=== PATIENT | male | born 1960 | race Caucasian/White ===

== ENCOUNTER 2024-12-26 20:36 | Inpatient (IN) ==
--- NOTE | 2024-12-26 21:12 | Emergency Department Note ---
Impression & Plan Atrial flutter with rapid ventricular response, Bilateral pleural effusion, Hernia, ventral, Hypertension ED Provider Note NAME: JEAN-PAUL MCCRACKEN AGE: 64 SEX: M : 1960 ARRIVES VIA: Ambulance INFORMANT: Patient, ED PROVIDER(S): Fritz Odom DO CHIEF COMPLAINT: Hernia HPI: The patient is a 64-year-old male who presented to the emergency department for an evaluation of a hernia. The patient's had a hernia ever since he lifted his 4 avila out of the mud 6 months ago. The patient does not have a family doctor. The patient has not been seen by surgeon. He notices no nausea or vomiting. He came to emergency department this evening because he wants to have it evaluated and possibly have surgery. ROS: See above HPI for pertinent positives & negatives. A total of 10 systems reviewed and were otherwise negative. PAST MEDICAL HISTORY: See Below PAST SURGICAL HISTORY: See Below FAMILY HISTORY: See Below SOCIAL HISTORY: See Below HOME MEDICATIONS: See Below ALLERGIES: See Below VITALS: See Below PHYSICAL EXAMINATION: GENERAL: Patient is awake alert in no acute distress patient is resting comfortably and showing no signs of anxiety EYES: The conjunctivae are clear. The pupils are round and reactive. EARS, NOSE, MOUTH AND THROAT: The nose is without any evidence of any deformity. NECK: The neck is nontender and supple. RESPIRATORY: Normal respiratory effort is noted. Rales were noted at both bases. CARDIOVASCULAR: Tachycardic and irregular heart sounds with auscultation. No definite murmur was noted. GASTROINTESTINAL: The abdomen is soft. The abdomen is mildly distended. There is periumbilical tenderness noted but no obvious incarcerated hernia. MUSCULOSKELETAL/EXTREMITIES: There is no evidence of gross deformity full range of motion is noted in the hips and shoulders. SKIN: There is no obvious evidence of any rash. There are no petechiae, pallor or cyanosis noted. NEUROLOGIC: Patient is awake alert and oriented x3 MEDICAL DECISION MAKING: The patient is a 64-year-old male who presented to the emergency department initially complaining of upper abdominal pain. He states he has a hernia that began 6 months ago when he was pushing a 4 avila out of the mud. The patient was found to have tachycardia. On EKG he was found to have rapid atrial fibrillation with atrial flutter. The patient also had abnormal lung sounds. Chest x-ray revealed signs of pleural effusion bilaterally. I discussed patient's laboratory and radiographic studies with him. He was treated with IV fluids IV magnesium and IV Cardizem in the emergency department. He was reevaluated multiple times. His heart rate certainly improved. The patient does not see a family doctor at this time. I think he will require further cardiac workup to ensure no other specific underlying issues are noted. I discussed his condition with the on-call [facility] Hospitalist. They have agreed to evaluate the patient in the emergency department for further management and disposition. Triage Nursing notes reviewed. Prior medical records reviewed Vital Signs: reviewed and remarkable for hypertension and tachycardia. Differential diagnosis: Etiologies such as appendicitis, diverticulitis, obstruction, inflammatory bowel disease, renal colic, PUD, biliary pathology, pancreatitis, mesenteric ischemia, aortic pathology, infections, genitourinary, UTI, perforated viscus, as well as others were entertained. ER treatment provided: See below Diagnostics interpreted by me: ECG: EKG was obtained in the emergency department. My interpretation is atrial flutter at 120 bpm. No PVCs were noted. Widespread ST segment abnormalities are noted. QTc was 502 ms. Cardiac Monitoring: An order was placed for continuous cardiac monitoring. The monitor shows a rate of 98 bpm with atrial fibrillation. Laboratory studies: As stated above and show below. Imaging studies: See below. Radiographic imaging was reviewed by myself Consultation(s): I discussed this case with Dr. Lobo [facility] COURSE: Procedures: none Critical Care: I have personally spent greater than 40 minutes of critical care time in the direct management of this patient. This includes bedside care, interpretation of diagnostic studies, and testing, discussion with consultants, patient, and family members, and other required patient management activities. This 40 minutes is in excess of all separately billable procedures. Past Med/Surg History Problem List (Updated 12/27/24 @ 00:12 by Fritz Odom DO) Hernia, ventral (Acute) Bilateral pleural effusion (Acute) Atrial flutter with rapid ventricular response (Acute) Xerophthalmus Insomnia Seborrheic dermatitis of scalp Hypertension (Acute) Sinus congestion Headache Tension headache History of endoscopic sinus surgery x2 Meniere's disease Medical History Chronic otitis media Obesity Hepatitis C hx of, treated and no longer has BPH (benign prostatic hyperplasia) History of colon polyps Diverticular disease GERD (gastroesophageal reflux disease) Anxiety Hyperlipidemia Surgical History History of surgery on arm left arm History of liver biopsy fatty liver History of esophagogastroduodenoscopy (EGD) History of colonoscopy History of colon resection sigmoid d/t diverticulitis History of cholecystectomy History of appendectomy History of tonsillectomy History of myringotomy bilt Family History Other No family history of adverse response to anesthesia Social History Smoking Status: Current every day smoker Tobacco Type: Cigarettes Age Started Using Tobacco: 15; packs per day: 1; Cigarettes Per Day: was at 1 PPD - now down to 1 PPW; Second Hand Exposure: Yes (father smoked); Do You Dip or Chew Tobacco: No; Hx Alcohol Use: No Hx Substance Use: No Preferred Language: Yoruba Communication Ability: Effective 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: No Beliefs That Will Affect Care: None marital status: Current Living Situation: Alone current occupational status: retired Feels Safe at Home: Yes Diet: regular during the past year weight has: remained stable Physical Activity Frequency: Daily Physical Activity Frequency Comment: walking Seatbelt Use: always Sunscreen Use: Yes Assistive Devices: Glasses Allergies Allergies Allergy/AdvReac Type Severity Reaction Status Date / Time morphine Allergy Severe "it near Verified 03/20/24 14:49 killed me" alfuzosin Allergy Unknown Verified 03/20/24 14:49 clarithromycin [From Biaxin] AdvReac Mild keeps him Verified 03/20/24 14:49 awake Home Meds Previous Rx's Medication Instructions Recorded albuterol sulfate 90 mcg/actuation 1 inh inhalation QID #8.5 grams 03/20/24 aerosol inhaler lisinopril 20 mg tablet 20 mg PO DAILY #90 tabs 03/20/24 meloxicam 15 mg tablet 15 mg PO DAILY 14 days #14 tabs 03/20/24 clindamycin HCl 150 mg capsule 450 mg (3 x 150 mg) PO TID #63 caps 04/13/24 fluticasone propionate 50 1 spray intranasal Q12H #16 grams 04/13/24 mcg/actuation nasal spray,suspension ketoconazole 2 % shampoo 1 applic topical Q14D #120 mL 04/13/24 propylene glycol 0.6 % eye drops 1 drp ophthalmic (eye) BID PRN dry 04/13/24 (Systane Complete) eye(s) #20 mL quetiapine 100 mg tablet 100 mg PO QDAY #90 tabs 04/13/24 Results & Data (ED) Vital Signs Vital Signs - 24 hr 12/26/24 20:38 12/26/24 21:41 12/26/24 21:43 Temperature 36.7 C Temperature Source Temporal Artery Scan Pulse Rate 103 H 165 H Pulse Rate [Right Finger] 133 H Pulse Rate from SpO2 Sensor Pulse Rhythm Regular Pulse Rhythm [Right Finger] Regular Pulse Strength Normal Respiratory Rate 18 20 Respiratory Effort / Characteristics Non-Labored Spontaneous Respiratory Depth Normal Respiratory Pattern Regular Blood Pressure 176/97 H Blood Pressure [Right Arm] 174/144 H Blood Pressure Mean 123 Blood Pressure Mean [Right Arm] 154 Blood Pressure Position Sitting Pulse Oximetry 92 97 Oxygen Delivery Method Room Air Room Air Sepsis Recent Fever Within 48 Hours No Sepsis New/Unexplained Change in Mental Status No Sepsis Action Taken by Nursing No Action Required 12/26/24 21:49 12/26/24 22:52 12/26/24 23:01 Temperature Temperature Source Pulse Rate 140 H Pulse Rate [Right Finger] 105 H Pulse Rate from SpO2 Sensor Pulse Rhythm Regular Pulse Rhythm [Right Finger] Irregular Pulse Strength Respiratory Rate 20 20 Respiratory Effort / Characteristics Respiratory Depth Respiratory Pattern Blood Pressure 187/123 H Blood Pressure [Right Arm] 169/101 H Blood Pressure Mean 152 Blood Pressure Mean [Right Arm] 123 Blood Pressure Position Pulse Oximetry 95 90 93 Oxygen Delivery Method Room Air Room Air Room Air Sepsis Recent Fever Within 48 Hours Sepsis New/Unexplained Change in Mental Status Sepsis Action Taken by Nursing 12/26/24 23:09 12/26/24 23:12 Temperature Temperature Source Pulse Rate 121 H 97 H Pulse Rate [Right Finger] Pulse Rate from SpO2 Sensor 66 Pulse Rhythm Pulse Rhythm [Right Finger] Pulse Strength Respiratory Rate 34 H 26 H Respiratory Effort / Characteristics Respiratory Depth Respiratory Pattern Blood Pressure Blood Pressure [Right Arm] Blood Pressure Mean Blood Pressure Mean [Right Arm] Blood Pressure Position Pulse Oximetry Oxygen Delivery Method Sepsis Recent Fever Within 48 Hours Sepsis New/Unexplained Change in Mental Status Sepsis Action Taken by Usp Medications Current Medication List: was personally reviewed by me Laboratory Data Attestation: I reviewed the patient's lab results. 12/26/24 21:36 12/26/24 21:36 Lab Results 12/26/24 12/26/24 12/26/24 Range/Units 21:36 21:41 21:45 WBC 5.25 (4.8-10.8) K/ul RBC 5.17 (4.70-6.10) M/uL Hgb 15.1 (14.0-18.0) g/dl POC Hgb 15.6 (14.0-18.0) g/dl Hct 44.5 (42.0-52.0) % POC Hct 46 (42-52) % MCV 86.1 (80.0-100.0) fL MCH 29.2 (25.0-34.0) pg MCHC 33.9 (32.0-36.0) g/dL RDW Std Deviation 43.4 (36.4-46.3) fL RDW Coeff of Marc 14.0 (11.5-14.5) % Plt Count 215 (130-400) K/uL MPV 9.4 (9.4-12.4) fL Immature Gran % (Auto) 0.2 % Neut % (Auto) 70.6 % Lymph % (Auto) 18.5 % Bond % (Auto) 8.2 % Eos % (Auto) 1.9 % Baso % (Auto) 0.6 % Neut # (Auto) 3.71 (1.40-6.50) K/uL Lymph # (Auto) 0.97 L (1.20-3.40) K/uL Bond # (Auto) 0.43 (0.11-0.59) K/uL Eos # (Auto) 0.10 (0.00-0.50) K/uL Baso # (Auto) 0.03 (0.00-0.20) K/uL Immature Gran # (Auto) 0.01 (0.01-0.20) K/uL POC Sodium 141 (135-144) mmol/L Sodium 138 (136-145) mmol/L POC Potassium 3.6 (3.3-5.0) mmol/L Potassium 3.6 (3.5-5.1) mmol/L POC Chloride 105 (101-112) mmol/L Chloride 106 (98-107) mmol/L Carbon Dioxide 24 (21-32) mmol/L POC Total CO2 21 L (24-31) mmol/L Anion Gap 8 (3-11) POC Anion Gap 20.0 (16-25) mmol/L POC BUN 10 (7-18) mg/dl BUN 12 (6-23) mg/dl Creatinine 1.11 (0.6-1.4) mg/dl POC Creatinine 1.1 (0.6-1.3) mg/dl Est Cr Clr Drug Dosing 76.1 ml/min eGFR 73.24 BUN/Creatinine Ratio 10.8 (10-20) Glucose 112 H (70-99(Fasting)) mg/dl POC Glucose (other) 109 H (70-99) mg/dl Calcium 8.7 (8.6-10.3) mg/dl POC Ioniz Calcium Caryn 1.15 (1.12-1.32) mmol/l Magnesium 1.9 (1.7-2.4) mg/dl Total Bilirubin 1.1 H (0.2-1.0) mg/dl AST 21 (13-39) U/L ALT 21 (7-52) U/L Alkaline Phosphatase 43 (34-104) U/L Troponin I High Sens 80.9 H* (0-20) pg/ml Total Protein 7.1 (6.0-8.3) gm/dl Albumin 3.7 (3.4-5.0) gm/dl Globulin 3.4 (2.5-4.0) gm/dl Albumin/Globulin Ratio 1.1 (0.9-2) Lipase 7 L (11-82) U/L TSH 1.262 (0.300-4.500) uIu/ml Urine Color Yellow Urine Appearance Clear (Clear) Urine pH 7.0 (4.5-7.5) Ur Specific [place] 1.015 (1.000-1.030) Urine Protein 1+ H (Negative) Urine Glucose (UA) Negative (Negative) Urine Ketones Negative (Negative) Urine Blood 1+ H (Negative) Urine Nitrite Negative (Negative) Urine Bilirubin Negative (Negative) Urine Urobilinogen Negative (Negative) Ur Leukocyte Esterase Negative (Negative) Urine WBC (Auto) 0-5 (0-5) /hpf Urine RBC (Auto) 0-2 (0-2) /hpf U Hyaline Cast (Auto) 0-2 (0-2) /lpf U Epithel Cells (Auto) 0-2 (0-2) /hpf Urine Bacteria (Auto) None Seen (None Seen) Urine Comment Administered Medications Discontinued Medications Diltiazem HCl (Diltiazem Hcl 5 Mg/Ml 5 Ml Vial) 10 mg IV NOW STA Stop: 12/26/24 22:02 Last Admin: 12/26/24 22:43 Dose: 10 mg Documented By: EAGLE Co-signed By: FRANKIE Diltiazem HCl (Diltiazem Hcl 5 Mg/Ml 5 Ml Vial) 10 mg IV NOW STA Stop: 12/26/24 22:32 Last Admin: 12/26/24 23:03 Dose: 10 mg Documented By: EAGLE Co-signed By: BOB Sodium Chloride (Nss) 500 mls @ 999 mls/hr IV .Q31M STA Stop: 12/26/24 21:30 Last Infusion: 12/26/24 23:51 Dose: Infused Documented By: Admin: 12/26/24 22:51 Dose: 999 mls/hr Documented By: EAGLE Magnesium Sulfate/Dextrose (Magnesium Sulfate / D5w) 1 gm in 100 mls @ 100 mls/hr IV NOW STA Stop: 12/26/24 23:00 Last Infusion: 12/26/24 23:51 Dose: Infused Documented By: Admin: 12/26/24 22:43 Dose: 100 mls/hr Documented By: EAGLE Ioversol (Optiray 320 125ml) 118 ml IV ONCE ONE Stop: 12/26/24 22:25 Last Admin: 12/26/24 22:24 Dose: 118 ml Documented By: JEANNINE Ondansetron HCl (Ondansetron Inj 2 Mg/Ml 2 Ml Vial) 4 mg IV NOW STA Stop: 12/26/24 21:01 Last Admin: 12/26/24 22:43 Dose: 4 mg Documented By: EAGLE Imaging Data Attestation: I personally reviewed and interpreted this imaging study as follows: My Impression: 1 view chest x-ray was obtained in the emergency department. My interpretation is bilateral pleural effusions noted, cardiomegaly was noted, final report pending. Discharge Plan Visit Data Chief Complaint: Abdominal Pain Stated Complaint: ABDOMINAL PAIN ED Provider: Fritz Odom Discharge Problem: Atrial flutter with rapid ventricular response, Bilateral pleural effusion, Hernia, ventral, Hypertension Patient Disposition: Being Evaluated by Hospitalist Condition: Fair Forms Stand Alone Forms: My [facility] Prescriptions Prescriptions: No Action lisinopril 20 mg tablet 20 mg PO DAILY Qty: 90 3RF albuterol sulfate 90 mcg/actuation HFA aerosol inhaler 1 inh inhalation QID Qty: 8.5 2RF meloxicam 15 mg tablet 15 mg PO DAILY 14 Days Qty: 14 1RF quetiapine 100 mg tablet 100 mg PO QDAY Qty: 90 1RF Rx Instructions: Take at night ketoconazole 2 % shampoo 1 applic topical Q14D Qty: 120 0RF Rx Instructions: use twice a week for 3-4 weeks fluticasone propionate 50 mcg/actuation spray,suspension 1 spray intranasal Q12H Qty: 16 2RF Rx Instructions: administer into each nostril clindamycin HCl 150 mg capsule 450 mg PO TID Qty: 63 0RF Systane Complete 0.6 % drops 1 drp ophthalmic (eye) BID PRN (Reason: dry eye(s)) Qty: 20 1RF Referrals Referrals: Garcia Bustamante DO [Primary Care Provider] -
[2024-12-26 21:51] LABS: Hematocrit (blood only) 44.5 % (42.0-52.0); Hemoglobin 15.1 g/dl (14.0-18.0); Immature Granulocytes # (auto) 0.01 K/uL (0.01-0.20); Immature Granulocytes % (auto) 0.2 %; Mean Corpuscular Hemoglobin 29.2 pg (25.0-34.0); Mean Corpuscular Volume 86.1 fL (80.0-100.0); Platelet Count 215 K/uL (130-400); RDW Standard Deviation 43.4 fL (36.4-46.3); Red Blood Count 5.17 M/uL (4.70-6.10); White Blood Count 5.25 K/ul (4.8-10.8)
[2024-12-26 22:03] LABS: Appearance Urine Clear (Clear); Glucose Urine UA Negative (Negative)
[2024-12-26 22:08] LABS: Alanine Aminotransferase 21.0 U/L (7-52); Albumin Globulin Ratio 1.1 (0.9-2); Alkaline Phosphatase 43.0 U/L (34-104); Anion Gap 8.0 (3-11); Bilirubin,Total 1.1 mg/dl (0.2-1.0); Blood Urea Nitrogen 12.0 mg/dl (6-23); Calcium 8.7 mg/dl (8.6-10.3); Carbon Dioxide 24.0 mmol/L (21-32); Chloride 106.0 mmol/L (98-107); Creatinine Clr Calc Pharmacy 76.1 ml/min; Globulin 3.4 gm/dl (2.5-4.0); Glucose 112.0 mg/dl (70-99(Fasting)); Lipase 7.0 U/L (11-82); Potassium 3.6 mmol/L (3.5-5.1); Sodium 138.0 mmol/L (136-145); Total Protein 7.1 gm/dl (6.0-8.3)
[2024-12-26 22:09] LABS: Bacteria Urine Automated None Seen (None Seen); Cast Urine Automated 0-2 /lpf (0-2); Epithelial Cell Urine Auto 0-2 /hpf (0-2); RBC Urine Automated 0-2 /hpf (0-2); WBC Urine Automated 0-5 /hpf (0-5)
[2024-12-26 22:21] LABS: Magnesium 1.9 mg/dl (1.7-2.4)
[2024-12-26] MEDS: OPTIRAY 320 125ml IV ONE (22:24)
[2024-12-26 22:37] LABS: Thyroid Stimulating Hormone 1.262 uIu/ml (0.300-4.500)
[2024-12-26] MEDS: ONDANSETRON INJ 2 MG/ML 2 ML VIAL IV STA (22:43)
[2024-12-26] MEDS: MAGNESIUM SULFATE / D5W 1 GM/100 ML BAG IV STA (22:43)
[2024-12-26] MEDS: SODIUM CHLORIDE 0.9% 500 ML IV STA (22:51)
--- NOTE | 2024-12-27 00:33 | XRay Report ---
Exam(s): XR CXR 1 VIEW EXAM: XR Chest, 1 View CLINICAL HISTORY: Reason for exam: epigastric pain. TECHNIQUE: Frontal view of the chest. COMPARISON: Prior CT scan of the chest from the same day. FINDINGS: Lungs: Moderate to heavy peribronchial thickening of the central lower lobe bronchi with bilateral lower lobe infiltrates. Pleural space: Moderate sized right and small left pleural effusion. No pneumothorax. Heart: Mild cardiomegaly. Mediastinum: Unremarkable. Normal mediastinal contour. Bones/joints: Unremarkable. No acute fracture. IMPRESSION: Bilateral lower lobe infiltrates with moderate sized right and small left pleural effusions. Electronically signed by: Nataly Brock MD 12/27/24 00:32 AM
--- NOTE | 2024-12-27 00:46 | History & Physical Report ---
Date of Service December 27, 2024 Assessment & Plan (1) Bilateral pleural effusion: (2) Atrial flutter with rapid ventricular response: (3) Hypertension: (4) Hyperlipidemia: (5) GERD (gastroesophageal reflux disease): Plan 64-year-old male with history of hypertension, hyperlipidemia presenting with complaint of abdominal pain due to longstanding hernia. Found to be in new onset atrial fibrillation with rapid ventricular response. Concern for possible heart failure given presence of bilateral pleural effusions. Patient is not complaining of chest pain, palpitations, shortness of breath. Presently with adequate oxygenation on room air #Atrial fibrillation with rapid ventricular responsepatient is unaware of prior diagnosis of AF. rate is presently uncontrolled, has received 2 doses of IV diltiazem. Patient given IV Magnesium. TSH is within normal limits Will admit to PCU IV metoprolol 5 mg as needed. If persistently elevated heart rate will consider initiating diltiazem drip Will initiate apixaban anticoagulation (10 mg p.o. twice daily x 7 days followed by 5 mg p.o. twice daily)patient's [id number] score = 3 (age, hypertension, presumed history of CHF although workup for this is presently underway) #Pleural effusionsconcern for new onset heart failure in the setting of atrial fibrillation. Patient with no shortness of breath at present, adequate oxygenation on room air Check 2D echo Lasix 20 mg IV now and daily Monitor intake and output and daily weights Initiating metoprolol to tartrate 12.5 mg p.o. twice daily for blood pressure management as well as presumed CHF Initiating valsartan 80 mg p.o. daily for hypertension as well as presumed CHF Will need to readdress GDMT based on formal echo results. #Abdominal wall herniapatient complaining of this. At this point does not appear to be incarcerated. CT of the abdomen has been obtained and formal results are pending Will order abdominal binder to assist with symptoms #Hypertensionpatient with markedly elevated blood pressure. Was on lisinopril in the past but reports he is no longer taking any medications Will initiate metoprolol tartrate 12.5 mg p.o. twice daily Valsartan 80 mg p.o. every morning #Hyperlipidemiareported history. Patient presently not on any medications Check lipid panel with a.m. labs Will likely need to be started on a statin #GERDpatient with reported history of such. Presently with no complaints Consider H2 annelise if patient complains of symptoms #Chronic sinusitispatient is specifically asking for large quantities of clindamycin (500 tablets) to be prescribed to him urgently. Given that he has no evidence of active infection we will not provide antibiotics at this time Nasal spray 4 times daily as needed #Tobacco usepatient reports smoking 1.5 cigarettes/day. He is interested in a nicotine patch. I explained to him that he would most likely be getting more nicotine from the patch that he does from 1.5 cigarettes/day Nicotine 7 mg patch daily #Health maintenance Will order hemoglobin A1c and lipid panel History of Present Illness Chief Complaint: Shortness of breath Primary Care Provider: Garcia Bustamante DO Jalen Alvarado is a 64yo male with history of HTN, HLP, GERD, presenting with complaint of abdominal pain. Patient has a ventral hernia and reports ongoing pain in his anterior abdomen - sharp and stabbing with occasional radiation into the back. He reports that the pain is fairly constant, severe at times. He has normal appetite and oral intake. Reports normal bowel movements. No abdominal distention. In the ER, patient found to be in atrial fibrillation with rapid ventricular response. He has no prior history of atrial fibrillation but was told years ago by Dr. Jordan that he has an "extra heartbeat". Has never been on anticoagulation. Denies edema, orthopnea, weight gain Denies nausea, vomiting, diarrhea, constipation, urinary complaints He does have occasional cough productive for white phlegm with occasional pink tinge ER course: Thiamine 200 mg IV Diltiazem 10 mg IV x 2 Normal saline 500 mL IV Magnesium 1 g IV Zofran 4 mg IV Allergies Allergy/AdvReac Type Severity Reaction Status Date / Time morphine Allergy Severe "it near Verified 03/20/24 14:49 killed me" alfuzosin Allergy Unknown Unknown Verified 12/27/24 01:12 clarithromycin [From Biaxin] AdvReac Mild keeps him Verified 03/20/24 14:49 awake Home Medications Medication Instructions Recorded Confirmed Type No Known Home Medications 12/27/24 12/27/24 History Past Med/Surg History Problem List Hernia, ventral (Acute) Bilateral pleural effusion (Acute) Atrial flutter with rapid ventricular response (Acute) Xerophthalmus Insomnia Seborrheic dermatitis of scalp Hypertension (Acute) Sinus congestion Headache Tension headache History of endoscopic sinus surgery x2 Meniere's disease Medical History Chronic otitis media Obesity Hepatitis C hx of, treated and no longer has BPH (benign prostatic hyperplasia) History of colon polyps Diverticular disease GERD (gastroesophageal reflux disease) Anxiety Hyperlipidemia Surgical History History of surgery on arm left arm History of liver biopsy fatty liver History of esophagogastroduodenoscopy (EGD) History of colonoscopy History of colon resection sigmoid d/t diverticulitis History of cholecystectomy History of appendectomy History of tonsillectomy History of myringotomy bilt Family History Other No family history of adverse response to anesthesia Social History Smoking Status: Current every day smoker Tobacco Type: Cigarettes Age Started Using Tobacco: 15; packs per day: 1; Cigarettes Per Day: was at 1 PPD - now down to 1 PPW; Second Hand Exposure: Yes (father smoked); Do You Dip or Chew Tobacco: No; Hx Alcohol Use: No Hx Substance Use: No Preferred Language: Belarusian Communication Ability: Effective Swing Tender Required: No Beliefs That Will Affect Care: None marital status: Current Living Situation: Alone current occupational status: retired Feels Safe at Home: Yes Diet: regular during the past year weight has: remained stable Physical Activity Frequency: Daily Physical Activity Frequency Comment: walking Seatbelt Use: always Sunscreen Use: Yes Assistive Devices: Glasses Review of Systems Review of Systems: All systems reviewed & are unremarkable except as noted in HPI & below Physical Exam Physical Exam: General: patient resting comfortably, NAD, non-toxic in appearance, AA&O x 4 Skin: warm, dry, intact, no rashes or lesions HEENT: NC/AT, PERRL, EOMI, anicteric sclera, conjunctiva without injection, external ear normal to inspection and nontender, nares patent, moist mucus membranes, dentition intact, no oropharyngeal lesions, neck supple, trachea midline, no LAD, no thyromegaly, no JVD Heart: +S1/S2, irregularly irregular, tachycardic, no m/r/g Lungs: equal air entry bilaterally, no wheezes, diminished breath sounds in bases with some rales in mid lungs Abd: +BS, soft, NT/ND, abdominal hernia, soft, mildly tender Ext: warm, 2+ pulses in UE/LE bilaterally, no clubbing/cyanosis or edema Neuro: nonfocal, patient AA&O x 4, speech intact, no facial droop, moving all extremities on command with equal strength 5/5 Results & Data Results & Data Vital Signs (Past 12 Hours) Vital Signs Temp Pulse Pulse Resp BP BP Pulse Ox 12/26/24 23:12 97 H 26 H 12/26/24 23:09 121 H 34 H 12/26/24 23:01 187/123 H 93 12/26/24 22:52 105 H 20 169/101 H 90 12/26/24 21:49 140 H 20 95 12/26/24 21:43 165 H 12/26/24 21:41 133 H 20 174/144 H 97 12/26/24 20:38 36.7 C 103 H 18 176/97 H 92 O2 Del Method 12/26/24 23:12 12/26/24 23:09 12/26/24 23:01 Room Air 12/26/24 22:52 Room Air 12/26/24 21:49 Room Air 12/26/24 21:43 12/26/24 21:41 Room Air 12/26/24 20:38 Room Air Laboratory Results Laboratory Results WBC 5.25 K/ul (4.8-10.8) 12/26/24 21:36 RBC 5.17 M/uL (4.70-6.10) 12/26/24 21:36 Hgb 15.1 g/dl (14.0-18.0) 12/26/24 21:36 POC Hgb 15.6 g/dl (14.0-18.0) 12/26/24 21:41 Hct 44.5 % (42.0-52.0) 12/26/24 21:36 POC Hct 46 % (42-52) 12/26/24 21:41 MCV 86.1 fL (80.0-100.0) 12/26/24 21:36 MCH 29.2 pg (25.0-34.0) 12/26/24 21:36 MCHC 33.9 g/dL (32.0-36.0) 12/26/24 21:36 RDW Std Deviation 43.4 fL (36.4-46.3) 12/26/24 21:36 RDW Coeff of Marc 14.0 % (11.5-14.5) 12/26/24 21:36 Plt Count 215 K/uL (130-400) 12/26/24 21:36 MPV 9.4 fL (9.4-12.4) 12/26/24 21:36 Immature Gran % (Auto) 0.2 % 12/26/24 21:36 Neut % (Auto) 70.6 % 12/26/24 21:36 Lymph % (Auto) 18.5 % 12/26/24 21:36 Jenkins % (Auto) 8.2 % 12/26/24 21:36 Eos % (Auto) 1.9 % 12/26/24 21:36 Baso % (Auto) 0.6 % 12/26/24 21:36 Neut # (Auto) 3.71 K/uL (1.40-6.50) 12/26/24 21:36 Lymph # (Auto) 0.97 K/uL (1.20-3.40) L 12/26/24 21:36 Jenkins # (Auto) 0.43 K/uL (0.11-0.59) 12/26/24 21:36 Eos # (Auto) 0.10 K/uL (0.00-0.50) 12/26/24 21:36 Baso # (Auto) 0.03 K/uL (0.00-0.20) 12/26/24 21:36 Immature Gran # (Auto) 0.01 K/uL (0.01-0.20) 12/26/24:36 POC Sodium 141 mmol/L (135-144) 12/26/24 21:41 Sodium 138 mmol/L (136-145) 12/26/24 21:36 POC Potassium 3.6 mmol/L (3.3-5.0) 12/26/24 21:41 Potassium 3.6 mmol/L (3.5-5.1) 12/26/24 21:36 POC Chloride 105 mmol/L (101-112) 12/26/24 21:41 Chloride 106 mmol/L (98-107) 12/26/24 21:36 Carbon Dioxide 24 mmol/L (21-32) 12/26/24 21:36 POC Total CO2 21 mmol/L (24-31) L 12/26/24 21:41 Anion Gap 8 (3-11) 12/26/24 21:36 POC Anion Gap 20.0 mmol/L (16-25) 12/26/24 21:41 POC BUN 10 mg/dl (7-18) 12/26/24 21:41 BUN 12 mg/dl (6-23) 12/26/24 21:36 Creatinine 1.11 mg/dl (0.6-1.4) 12/26/24 21:36 POC Creatinine 1.1 mg/dl (0.6-1.3) 12/26/24 21:41 Est Cr Clr Drug Dosing 76.1 ml/min 12/26/24 21:36 eGFR 73.24 12/26/24 21:36 BUN/Creatinine Ratio 10.8 (10-20) 12/26/24 21:36 Glucose 112 mg/dl (70-99(Fasting)) H 12/26/24 21:36 POC Glucose (other) 109 mg/dl (70-99) H 12/26/24 21:41 Calcium 8.7 mg/dl (8.6-10.3) 12/26/24 21:36 POC Ioniz Calcium Caryn 1.15 mmol/l (1.12-1.32) 12/26/24 21:41 Magnesium 1.9 mg/dl (1.7-2.4) 12/26/24 21:36 Total Bilirubin 1.1 mg/dl (0.2-1.0) H 12/26/24 21:36 AST 21 U/L (13-39) 12/26/24 21:36 ALT 21 U/L (7-52) 12/26/24 21:36 Alkaline Phosphatase 43 U/L (34-104) 12/26/24 21:36 Troponin I High Sens Cancelled 12/26/24 23:14 Total Protein 7.1 gm/dl (6.0-8.3) 12/26/24 21:36 Albumin 3.7 gm/dl (3.4-5.0) 12/26/24 21:36 Globulin 3.4 gm/dl (2.5-4.0) 12/26/24 21:36 Albumin/Globulin Ratio 1.1 (0.9-2) 12/26/24 21:36 Lipase 7 U/L (11-82) L 12/26/24 21:36 TSH 1.262 uIu/ml (0.300-4.500) 12/26/24 21:36 Urine Color Yellow 12/26/24 21:45 Urine Appearance Clear (Clear) 12/26/24 21:45 Urine pH 7.0 (4.5-7.5) 12/26/24 21:45 Ur Specific [place] 1.015 (1.000-1.030) 12/26/24 21:45 Urine Protein 1+ (Negative) H 12/26/24 21:45 Urine Glucose (UA) Negative (Negative) 12/26/24 21:45 Urine Ketones Negative (Negative) 12/26/24 21:45 Urine Blood 1+ (Negative) H 12/26/24 21:45 Urine Nitrite Negative (Negative) 12/26/24 21:45 Urine Bilirubin Negative (Negative) 12/26/24 21:45 Urine Urobilinogen Negative (Negative) 12/26/24 21:45 Ur Leukocyte Esterase Negative (Negative) 12/26/24 21:45 Urine WBC (Auto) 0-5 /hpf (0-5) 12/26/24 21:45 Urine RBC (Auto) 0-2 /hpf (0-2) 12/26/24 21:45 U Hyaline Cast (Auto) 0-2 /lpf (0-2) 12/26/24 21:45 U Epithel Cells (Auto) 0-2 /hpf (0-2) 12/26/24 21:45 Urine Bacteria (Auto) None Seen (None Seen) 12/26/24 21:45 Urine Comment 12/26/24 21:45 Impressions Chest X-Ray 12/26/24 21:00 Exam(s): XR CXR 1 VIEW EXAM: XR Chest, 1 View CLINICAL HISTORY: Reason for exam: epigastric pain. TECHNIQUE: Frontal view of the chest. COMPARISON: Prior CT scan of the chest from the same day. FINDINGS: Lungs: Moderate to heavy peribronchial thickening of the central lower lobe bronchi with bilateral lower lobe infiltrates. Pleural space: Moderate sized right and small left pleural effusion. No pneumothorax. Heart: Mild cardiomegaly. Mediastinum: Unremarkable. Normal mediastinal contour. Bones/joints: Unremarkable. No acute fracture. IMPRESSION: Bilateral lower lobe infiltrates with moderate sized right and small left pleural effusions. Electronically signed by: Nataly Brock MD 12/27/24 00:32 AM Code Status & VTE Plan VTE Prophylaxis Plan VTE Prophylaxis will be ordered: Yes PG Care Time/CCT Total # of Minutes Spent Total Time Spent with Patient: Total time spent is greater than 50% in coordination of care (as documented) at patient's floor/unit and/or counseling patient: Coding Level of Care Code 74986 INT INP/OBS CARE 3/75MIN Diagnoses Bilateral pleural effusion J90 Atrial flutter with rapid ventricular response I48.92 Hypertension I10 Hyperlipidemia E78.5 GERD (gastroesophageal reflux disease) K21.9
[2024-12-27] MEDS: THIAMINE HCL 200 MG in SODIUM CHLORIDE 0.9% 50 ML IV STA (01:01)
[2024-12-27] MEDS: METOPROLOL TARTRATE 1 MG/ML VIAL IV STA (01:41)
--- NOTE | 2024-12-27 02:05 | CT Scan Report ---
Exam(s): CTA CHEST IV Amt: 118 cc opti 320 EXAM: CT Chest With Intravenous Contrast CLINICAL HISTORY: Reason for exam: PE. TECHNIQUE: Axial computed tomographic images of the chest with intravenous contrast. CTDI is 27.9 mGy and DLP is 1472.81 mGy-cm. Automated exposure control was utilized for the study. A dose lowering technique was utilized adhering to the principles of ALARA. COMPARISON: No relevant prior studies available. FINDINGS: Limitations: Exam is somewhat limited secondary to patient respiratory motion. Pulmonary arteries: Unremarkable. No large central pulmonary embolus. Aorta: No acute findings. No thoracic aortic aneurysm. Lungs: Unremarkable. No mass. No consolidation. Pleural space: Bilateral pleural effusions. No pneumothorax. Heart: Cardiomegaly. No significant pericardial effusion. No evidence of RV dysfunction. Bones/joints: No acute fracture. No dislocation. Soft tissues: Unremarkable. Lymph nodes: Unremarkable. No enlarged lymph nodes. IMPRESSION: Bilateral pleural effusions. Electronically signed by: Tyron Abraham MD 12/27/24 02:04 AM
--- NOTE | 2024-12-27 02:27 | CT Scan Report ---
Exam(s): CT ABDOMEN + PELVIS With Contrast IV Amt: 118 cc opti 320 EXAM: CT Abdomen and Pelvis With Intravenous Contrast CLINICAL HISTORY: Reason for exam: upper pain. TECHNIQUE: Axial computed tomography images of the abdomen and pelvis with intravenous contrast. CTDI is 27.9 mGy and DLP is 1472.81 mGy-cm. Automated exposure control was utilized for the study. A dose lowering technique was utilized adhering to the principles of ALARA. CONTRAST: Patient received 118 cc opti 320 of IV contrast COMPARISON: 05/01/2011 FINDINGS: Lung bases: Unremarkable. No mass. No consolidation. Pleural space: Bilateral pleural effusions. ABDOMEN: Liver: Hepatic steatosis. Gallbladder and bile ducts: Postop changes prior cholecystectomy. No ductal dilation. Pancreas: Unremarkable. No mass. No ductal dilation. Spleen: Splenomegaly. Adrenals: Unremarkable. No mass. Kidneys and ureters: Simple 5.8 cm right renal cysts. No follow-up of these simple cysts is necessary. Multiple left renal cysts measuring up to 1.8 cm. No hydronephrosis. Stomach and bowel: Postop changes of the sigmoid colon. Diverticulosis without evidence of diverticulitis. No obstruction. PELVIS: Appendix: No findings to suggest acute appendicitis. Bladder: Unremarkable. No mass. Reproductive: Unremarkable as visualized. ABDOMEN and PELVIS: Intraperitoneal space: Unremarkable. No free air. No significant fluid collection. Bones/joints: No acute fracture. No dislocation. Soft tissues: Unremarkable. Vasculature: Unremarkable. No abdominal aortic aneurysm. Lymph nodes: Unremarkable. No enlarged lymph nodes. IMPRESSION: Bilateral pleural effusions. Hepatic steatosis Splenomegaly Bilateral renal cysts Electronically signed by: Tyron Abraham MD 12/27/24 02:26 AM
[2024-12-27] MEDS ORDERED: SODIUM CHLORIDE 0.65% NA SOLN 45 ML (OCEAN) PRN (03:04)
[2024-12-27] MEDS ORDERED: ONDANSETRON INJ 2 MG/ML 2 ML VIAL IV PRN (03:04)
[2024-12-27] MEDS ORDERED: DOCUSATE SODIUM 100 MG CAP PO PRN (03:04)
[2024-12-27] MEDS: FUROSEMIDE INJ 20 MG/2 ML VIAL IV ONE (03:16)
[2024-12-27 03:46] LABS: Hematocrit (blood only) 43.3 % (42.0-52.0); Hemoglobin 14.6 g/dl (14.0-18.0); Mean Corpuscular Hemoglobin 29.2 pg (25.0-34.0); Mean Corpuscular Volume 86.6 fL (80.0-100.0); Platelet Count 214 K/uL (130-400); RDW Standard Deviation 43.8 fL (36.4-46.3); Red Blood Count 5.00 M/uL (4.70-6.10); White Blood Count 5.86 K/ul (4.8-10.8)
[2024-12-27] MEDS: KETOROLAC TROMETHAMINE 15 MG/ML VIAL IV ONE (03:48)
[2024-12-27 04:07] LABS: Cholesterol 99.0 mg/dl (0-200); HDL Cholesterol 27.0 mg/dl; Triglycerides 86.0 mg/dl (0-150)
[2024-12-27 04:08] LABS: Anion Gap 7.0 (3-11); Blood Urea Nitrogen 13.0 mg/dl (6-23); Calcium 8.5 mg/dl (8.6-10.3); Carbon Dioxide 24.0 mmol/L (21-32); Chloride 108.0 mmol/L (98-107); Creatinine Clr Calc Pharmacy 73.4 ml/min; Glucose 136.0 mg/dl (70-99(Fasting)); Potassium 3.8 mmol/L (3.5-5.1); Sodium 139.0 mmol/L (136-145)
[2024-12-27] MEDS: METOPROLOL TARTRATE 25 MG TAB PO SCH (08:46)
[2024-12-27] MEDS: VALSARTAN 80 MG TAB PO SCH (08:46)
[2024-12-27] MEDS: APIXABAN 5 MG TABLET PO SCH (08:47)
[2024-12-27] MEDS: NICOTINE 7 MG/24 HR TDSY TD SCH (08:47)
[2024-12-27] MEDS: REMOVE NICODERM PATCH SCH (08:48)
[2024-12-27] MEDS: FUROSEMIDE INJ 20 MG/2 ML VIAL IV SCH (08:50)
[2024-12-27 09:15] LABS: Hemoglobin A1C 5.7 % (4.5-5.6)
--- NOTE | 2024-12-27 10:54 | Cardiology Consultation ---
Date of Consultation December 27, 2024 Assessment & Plan (1) Heart failure with reduced ejection fraction (HFrEF): - Heart failure with --- EF: Patient appears euvolemic. NYHA symptoms. - start Coreg BID and Entresto daily. Hold off on MRA given the potential for hyperkalemia when combined with Entresto. - start Jardiance 10mg as well - Low-sodium diet. - Monitor I/O, daily morning weights and periodically renal function (2) Atrial flutter with rapid ventricular response: - As of an hour ago he appeared to be in NSR with frequent PVCs. Would certainly encourage the patient to where his monitor as frequent PVCs can lead to conversation of afib. - Continue on eliquis. Transition to Coreg from metoprolol - awaiting official echo read though his EF appears to be poor preliminary review (3) Elevated troponin: - likely in the setting of rapid aflutter - trended: 80.9, 75.6, 94.4 - one may consider obtaining an additional for further monitoring Plan Patient seen and examined, history reviewed with patient. He was in atrial fibrillation for short time on presentation and then converted to sinus rhythm where he has remained. On his echocardiogram he has severe left ventricular dysfunction, by my estimation about 30% ejection fraction. I did start carvedilol and Entresto this morning and he is on Jardiance and Eliquis was initiated. I discussed evaluation of his cardiomyopathy and although he is reluctant he is willing to undergo some testing. I discussed the possibility of a catheterization or stress test for his cardiomyopathy, when I talked to him this morning he did not want to have a stress test done today but is willing to do it tomorrow. I have therefore ordered a dobutamine stress echo for tomorrow. His cardiomyopathy could be ischemic but it is just is likely to be nonischemic given his ECG showing no evidence of prior myocardial infarction. His troponin elevation is worrisome, perhaps he has a myocarditis. History of Present Illness Reason for Consultation: Atrial fibrillation, cardiomyopathy Attending Physician: Rober Motley MD History of Present Illness Patient is a 64-year-old male with a past medical history of Mnire's disease and hypertension who presented to the ER yesterday for evaluation of a hernia that had been causing him upper abdominal pain. He was noted to be tachycardic with his EKG reflecting rapid atrial flutter with conduction abnormalities. Chest x-ray revealed bilateral pleural effusions. He was provided with IV fluids, IV mag and IV Cardizem in the ER. Per review, he remained in A-fib/a flutter for several hours. The patient broke out of this rhythm at some point overnight. Per report, the patient has been noncompliant with his monitor. His monitor this morning left to be in normal sinus rhythm with frequent PVCs. Heart rate is controlled. He was started on Eliquis along with lasix and metoprolol tartrate 12.5 mg p.o. twice daily by the hospitalist. Echocardiogram ordered. Patient was not overly cooperative with his exam as he wanted to sleep. He recalls someone telling him that his heart was not beating correctly. He denied any history of afib/flutter or if there was a family history of such. He denied any recent dizziness or blurred vision. Denied any recent chest pain/pressure or shortness of breath. He states his legs sometimes swell, "alittle," especially after being on them all day. He states he is able to complete his ADLs without difficulty, and does not exercise much. He states, "I eat what I want." Allergies Allergy/AdvReac Type Severity Reaction Status Date / Time morphine Allergy Severe "it near Verified 03/20/24 14:49 killed me" alfuzosin Allergy Unknown Unknown Verified 12/27/24 01:12 clarithromycin [From Biaxin] AdvReac Mild keeps him Verified 03/20/24 14:49 awake Home Medications Medication Instructions Recorded Confirmed Type No Known Home Medications 12/27/24 12/27/24 History Patient History Medical History Chronic otitis media Obesity Hepatitis C hx of, treated and no longer has BPH (benign prostatic hyperplasia) History of colon polyps Diverticular disease GERD (gastroesophageal reflux disease) Anxiety Hyperlipidemia Surgical History History of surgery on arm left arm History of liver biopsy fatty liver History of esophagogastroduodenoscopy (EGD) History of colonoscopy History of colon resection sigmoid d/t diverticulitis History of cholecystectomy History of appendectomy History of tonsillectomy History of myringotomy bilt Family History Other No family history of adverse response to anesthesia Social History Smoking Status: Current every day smoker Tobacco Type: Cigarettes Age Started Using Tobacco: 15; packs per day: 1; Cigarettes Per Day: was at 1 PPD - now down to 1 PPW; Second Hand Exposure: Yes (father smoked); Do You Dip or Chew Tobacco: No; Hx Alcohol Use: Yes Hx Substance Use: No Preferred Language: Arabic Communication Ability: Effective Post Office 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 Mood affect appear normal. All questions appropriately. Obese HEENT: Sclerae are anicteric. Pupils are equal and reactive to light and accommodation. Extraocular movements were intact. Neuro: Ox3 Lungs: Lungs are clear to auscultation bilaterally. There are no rales wheezes or rhonchi. She has normal respiratory effort without use of accessory muscles. There is normal pulmonary excursion. Cardiac: RRR. There are no murmurs on examination. The PMI was not markedly displaced on palpation. Extremities: Bilateral radial pulses are regular. There is +1 edema noted to bilateral lower extremities Skin: There are no rashes noted on examination today. Results & Data Vital Signs (Past 12 Hours) Vital Signs Temp Pulse Pulse Resp BP BP Pulse Ox 12/27/24 08:00 36.4 C L 61 18 137/94 91 12/27/24 05:23 82 12/27/24 05:07 36.5 C 76 22 137/89 96 12/27/24 04:56 73 22 141/104 H 96 12/27/24 03:08 103 H 18 145/102 H 97 12/27/24 02:11 100 H 22 145/104 H 97 12/27/24 02:08 100 H 145/104 H 12/27/24 01:41 123 H 167/121 H 12/27/24 01:06 153 H 12/27/24 01:00 132 H 24 168/121 H 95 12/27/24 00:30 115 H 22 12/27/24 00:00 94 H 13 181/97 H 12/26/24 23:12 97 H 26 H 12/26/24 23:09 121 H 34 H 12/26/24 23:01 187/123 H 93 12/26/24 22:52 105 H 20 169/101 H 90 O2 Del Method 12/27/24 08:00 Room Air 12/27/24 05:23 12/27/24 05:07 Room Air 12/27/24 04:56 Room Air 12/27/24 03:08 Room Air 12/27/24 02:11 Room Air 12/27/24 02:08 12/27/24 01:41 12/27/24 01:06 12/27/24 01:00 Room Air 12/27/24 00:30 12/27/24 00:00 12/26/24 23:12 12/26/24 23:09 12/26/24 23:01 Room Air 12/26/24 22:52 Room Air
--- NOTE | 2024-12-27 16:46 | Surgery Consultation ---
Date of Consultation December 27, 2024 Assessment & Plan (1) Diastasis of rectus abdominis: (2) Heart failure with reduced ejection fraction (HFrEF): (3) Atrial flutter with rapid ventricular response: 64 yo male presented to ED with concern of ventral hernia after lifting four- avila 6 months ago. Has had chronic pain and feeling "sick" because of this. CT scan images personally reviewed, there is no evidence of a ventral hernia . Examination is consistent with diastasis recti Dr. Mendoza discussed this with patient and that there is no surgical intervention for diastasis as it is a weakening of the rectus muscle. Continue medical management. Dr. Mendoza has seen and examined patient. Supervising Physician Co-Signing Physician Notes I have seen and examined the patient personally and agree with the above assessment and plan. In brief, he is very concerned about a ventral hernia, and is adamant that he has 1. I personally examined him and reviewed his CT scan. By exam he has a diastases recti but no evidence of ventral or umbilical hernia. The CT scan demonstrates no evidence of hernia, but does show a diastases. I had a long discussion with him attempting to explain the diastases and the difference between this and a hernia. I explained that there is no surgical intervention to fix the diastases, as this does not represent a true hernia. he was quite confrontational and continue to say that if I will not fix his hernia, he will find someone else to do so. I again attempted to explain that this was not a hernia but a diastases. Will discuss this with the primary care physician, but no surgical intervention is required or planned at this time. History of Present Illness Reason for Consultation: ventral hernia Requesting Physician: Rober Motley MD Attending Physician: Rober Motley MD History of Present Illness Mr Alvarado is a 64 yo male who presented to ED with complaint of ventral hernia and abdominal pain due to hernia since lifting his four-avila 6 months ago. States there is a bulge there which causes pain through abdomen, into back, and shoulder and causes him to feel "sick". He is requesting to have it fixed. History of multiple abdominal surgeries. Allergies Allergy/AdvReac Type Severity Reaction Status Date / Time morphine Allergy Severe "it near Verified 03/20/24 14:49 killed me" alfuzosin Allergy Unknown Unknown Verified 12/27/24 01:12 clarithromycin [From Biaxin] AdvReac Mild keeps him Verified 03/20/24 14:49 awake Home Medications Medication Instructions Recorded Confirmed Type No Known Home Medications 12/27/24 12/27/24 History Patient History Medical History Chronic otitis media Obesity Hepatitis C hx of, treated and no longer has BPH (benign prostatic hyperplasia) History of colon polyps Diverticular disease GERD (gastroesophageal reflux disease) Anxiety Hyperlipidemia Surgical History History of surgery on arm left arm History of liver biopsy fatty liver History of esophagogastroduodenoscopy (EGD) History of colonoscopy History of colon resection sigmoid d/t diverticulitis History of cholecystectomy History of appendectomy History of tonsillectomy History of myringotomy bilt Family History Other No family history of adverse response to anesthesia Social History Smoking Status: Current every day smoker Tobacco Type: Cigarettes Age Started Using Tobacco: 15; packs per day: 1; Cigarettes Per Day: was at 1 PPD - now down to 1 PPW; Second Hand Exposure: Yes (father smoked); Do You Dip or Chew Tobacco: No; Hx Alcohol Use: Yes Hx Substance Use: No Preferred Language: Norwegian Communication Ability: Effective Superior Court Justice Required: No Beliefs That Will Affect Care: None marital status: Current Living Situation: Alone current occupational status: retired Feels Safe at Home: Yes Diet: regular during the past year weight has: remained stable Physical Activity Frequency: Daily Physical Activity Frequency Comment: walking Seatbelt Use: always Sunscreen Use: Yes Assistive Devices: Glasses Review of Systems Review of Systems: All systems reviewed & are unremarkable except as noted in HPI & below Physical Exam Constitutional: WD/WN, vitals as above + obese and cooperative; no acute distress and not ill appearing Respiratory: normal respiratory effort; no respiratory distress Gastrointestinal (Abdomen): Inspection/Auscultation: abdomen normal to inspection; abdomen not distended Percussion/Palpation: abdomen soft; abdomen nontender, no guarding, abdomen not rigid, no hernia and abdomen not firm Diastasis of the mid upper abdomen when patient sitting up /increasing abdominal pressure Skin: no rashes, warm and dry Psychiatric: Orientation: alert and oriented x 3 Results & Data Vital Signs (Past 12 Hours) Vital Signs Temp Pulse Pulse Resp BP Pulse Ox O2 Del Method 12/27/24 15:10 36.6 C 79 18 132/91 93 Room Air 12/27/24 11:34 36.4 C L 53 L 20 111/80 93 Room Air 12/27/24 08:00 Room Air 12/27/24 08:00 36.4 C L 61 18 137/94 91 Room Air 12/27/24 05:23 82 12/27/24 05:07 36.5 C 76 22 137/89 96 Room Air 12/27/24 04:56 73 22 141/104 H 96 Room Air Laboratory Results 12/27/24 12/27/24 12/26/24 Range/Units 03:19 01:34 23:14 WBC 5.86 (4.8-10.8) K/ul RBC 5.00 (4.70-6.10) M/uL Hgb 14.6 (14.0-18.0) g/dl POC Hgb (14.0-18.0) g/dl Hct 43.3 (42.0-52.0) % POC Hct (42-52) % MCV 86.6 (80.0-100.0) fL MCH 29.2 (25.0-34.0) pg MCHC 33.7 (32.0-36.0) g/dL RDW Std Deviation 43.8 (36.4-46.3) fL RDW Coeff of Marc 14.1 (11.5-14.5) % Plt Count 214 (130-400) K/uL MPV 9.6 (9.4-12.4) fL Immature Gran % (Auto) % Neut % (Auto) % Lymph % (Auto) % [place] % (Auto) % Eos % (Auto) % Baso % (Auto) % Neut # (Auto) (1.40-6.50) K/uL Lymph # (Auto) (1.20-3.40) K/uL [place] # (Auto) (0.11-0.59) K/uL Eos # (Auto) (0.00-0.50) K/uL Baso # (Auto) (0.00-0.20) K/uL Immature Gran # (Auto) (0.01-0.20) K/uL POC Sodium (135-144) mmol/L Sodium 139 (136-145) mmol/L POC Potassium (3.3-5.0) mmol/L Potassium 3.8 (3.5-5.1) mmol/L POC Chloride (101-112) mmol/L Chloride 108 H (98-107) mmol/L Carbon Dioxide 24 (21-32) mmol/L POC Total CO2 (24-31) mmol/L Anion Gap 7 (3-11) POC Anion Gap (16-25) mmol/L POC BUN (7-18) mg/dl BUN 13 (6-23) mg/dl Creatinine 1.15 (0.6-1.4) mg/dl POC Creatinine (0.6-1.3) mg/dl Est Cr Clr Drug Dosing 73.4 ml/min eGFR 70.19 BUN/Creatinine Ratio 11.3 (10-20) Glucose 136 H (70-99(Fasting)) mg/dl POC Glucose (other) (70-99) mg/dl Estimat Average Glucose 117 mg/dl Hemoglobin A1c 5.7 H (4.5-5.6) % Calcium 8.5 L (8.6-10.3) mg/dl POC Ioniz Calcium Caryn (1.12-1.32) mmol/l Magnesium (1.7-2.4) mg/dl Total Bilirubin (0.2-1.0) mg/dl AST (13-39) U/L ALT (7-52) U/L Alkaline Phosphatase (34-104) U/L Troponin I High Sens 94.4 H* D 75.6 H* Cancelled (0-20) pg/ml Total Protein (6.0-8.3) gm/dl Albumin (3.4-5.0) gm/dl Globulin (2.5-4.0) gm/dl Albumin/Globulin Ratio (0.9-2) Triglycerides 86 (0-150) mg/dl Cholesterol 99 (0-200) mg/dl LDL Cholesterol, Calc 55 mg/dl VLDL Cholesterol, Calc 17 (0-30) mg/dl HDL Cholesterol 27 mg/dl Cholesterol/HDL Ratio 3.7 (0-5) Lipase (11-82) U/L TSH (0.300-4.500) uIu/ml Urine Color Urine Appearance (Clear) Urine pH (4.5-7.5) Ur Specific Grimsley (1.000-1.030) Urine Protein (Negative) Urine Glucose (UA) (Negative) Urine Ketones (Negative) Urine Blood (Negative) Urine Nitrite (Negative) Urine Bilirubin (Negative) Urine Urobilinogen (Negative) Ur Leukocyte Esterase (Negative) Urine WBC (Auto) (0-5) /hpf Urine RBC (Auto) (0-2) /hpf U Hyaline Cast (Auto) (0-2) /lpf U Epithel Cells (Auto) (0-2) /hpf Urine Bacteria (Auto) (None Seen) Urine Comment 12/26/24 12/26/24 12/26/24 Range/Units 21:45 21:41 21:36 WBC 5.25 (4.8-10.8) K/ul RBC 5.17 (4.70-6.10) M/uL Hgb 15.1 (14.0-18.0) g/dl POC Hgb 15.6 (14.0-18.0) g/dl Hct 44.5 (42.0-52.0) % POC Hct 46 (42-52) % MCV 86.1 (80.0-100.0) fL MCH 29.2 (25.0-34.0) pg MCHC 33.9 (32.0-36.0) g/dL RDW Std Deviation 43.4 (36.4-46.3) fL RDW Coeff of Marc 14.0 (11.5-14.5) % Plt Count 215 (130-400) K/uL MPV 9.4 (9.4-12.4) fL Immature Gran % (Auto) 0.2 % Neut % (Auto) 70.6 % Lymph % (Auto) 18.5 % Furn[place] % (Auto) 8.2 % Eos % (Auto) 1.9 % Baso % (Auto) 0.6 % Neut # (Auto) 3.71 (1.40-6.50) K/uL Lymph # (Auto) 0.97 L (1.20-3.40) K/uL [place] # (Auto) 0.43 (0.11-0.59) K/uL Eos # (Auto) 0.10 (0.00-0.50) K/uL Baso # (Auto) 0.03 (0.00-0.20) K/uL Immature Gran # (Auto) 0.01 (0.01-0.20) K/uL POC Sodium 141 (135-144) mmol/L Sodium 138 (136-145) mmol/L POC Potassium 3.6 (3.3-5.0) mmol/L Potassium 3.6 (3.5-5.1) mmol/L POC Chloride 105 (101-112) mmol/L Chloride 106 (98-107) mmol/L Carbon Dioxide 24 (21-32) mmol/L POC Total CO2 21 L (24-31) mmol/L Anion Gap 8 (3-11) POC Anion Gap 20.0 (16-25) mmol/L POC BUN 10 (7-18) mg/dl BUN 12 (6-23) mg/dl Creatinine 1.11 (0.6-1.4) mg/dl POC Creatinine 1.1 (0.6-1.3) mg/dl Est Cr Clr Drug Dosing 76.1 ml/min eGFR 73.24 BUN/Creatinine Ratio 10.8 (10-20) Glucose 112 H (70-99(Fasting)) mg/dl POC Glucose (other) 109 H (70-99) mg/dl Estimat Average Glucose mg/dl Hemoglobin A1c (4.5-5.6) % Calcium 8.7 (8.6-10.3) mg/dl POC Ioniz Calcium Caryn 1.15 (1.12-1.32) mmol/l Magnesium 1.9 (1.7-2.4) mg/dl Total Bilirubin 1.1 H (0.2-1.0) mg/dl AST 21 (13-39) U/L ALT 21 (7-52) U/L Alkaline Phosphatase 43 (34-104) U/L Troponin I High Sens 80.9 H* (0-20) pg/ml Total Protein 7.1 (6.0-8.3) gm/dl Albumin 3.7 (3.4-5.0) gm/dl Globulin 3.4 (2.5-4.0) gm/dl Albumin/Globulin Ratio 1.1 (0.9-2) Triglycerides (0-150) mg/dl Cholesterol (0-200) mg/dl LDL Cholesterol, Calc mg/dl VLDL Cholesterol, Calc (0-30) mg/dl HDL Cholesterol mg/dl Cholesterol/HDL Ratio (0-5) Lipase 7 L (11-82) U/L TSH 1.262 (0.300-4.500) uIu/ml Urine Color Yellow Urine Appearance Clear (Clear) Urine pH 7.0 (4.5-7.5) Ur Specific [place] 1.015 (1.000-1.030) Urine Protein 1+ H (Negative) Urine Glucose (UA) Negative (Negative) Urine Ketones Negative (Negative) Urine Blood 1+ H (Negative) Urine Nitrite Negative (Negative) Urine Bilirubin Negative (Negative) Urine Urobilinogen Negative (Negative) Ur Leukocyte Esterase Negative (Negative) Urine WBC (Auto) 0-5 (0-5) /hpf Urine RBC (Auto) 0-2 (0-2) /hpf U Hyaline Cast (Auto) 0-2 (0-2) /lpf U Epithel Cells (Auto) 0-2 (0-2) /hpf Urine Bacteria (Auto) None Seen (None Seen) Urine Comment Diagnostic Findings Exam(s): CT ABDOMEN + PELVIS With Contrast IV Amt: 118 cc opti 320 EXAM: CT Abdomen and Pelvis With Intravenous Contrast CLINICAL HISTORY: Reason for exam: upper pain. TECHNIQUE: Axial computed tomography images of the abdomen and pelvis with intravenous contrast. CTDI is 27.9 mGy and DLP is 1472.81 mGy-cm. Automated exposure control was utilized for the study. A dose lowering technique was utilized adhering to the principles of ALARA. CONTRAST: Patient received 118 cc opti 320 of IV contrast COMPARISON: 05/01/2011 FINDINGS: Lung bases: Unremarkable. No mass. No consolidation. Pleural space: Bilateral pleural effusions. ABDOMEN: Liver: Hepatic steatosis. Gallbladder and bile ducts: Postop changes prior cholecystectomy. No ductal dilation. Pancreas: Unremarkable. No mass. No ductal dilation. Spleen: Splenomegaly. Adrenals: Unremarkable. No mass. Kidneys and ureters: Simple 5.8 cm right renal cysts. No follow-up of these simple cysts is necessary. Multiple left renal cysts measuring up to 1.8 cm. No hydronephrosis. Stomach and bowel: Postop changes of the sigmoid colon. Diverticulosis without evidence of diverticulitis. No obstruction. PELVIS: Appendix: No findings to suggest acute appendicitis. Bladder: Unremarkable. No mass. Reproductive: Unremarkable as visualized. ABDOMEN and PELVIS: Intraperitoneal space: Unremarkable. No free air. No significant fluid collection. Bones/joints: No acute fracture. No dislocation. Soft tissues: Unremarkable. Vasculature: Unremarkable. No abdominal aortic aneurysm. Lymph nodes: Unremarkable. No enlarged lymph nodes. IMPRESSION: Bilateral pleural effusions. Hepatic steatosis Splenomegaly Bilateral renal cysts Personally reviewed ct scan images above. There is no evidence of a ventral/umbilical hernia on ct scan.
--- NOTE | 2024-12-27 16:50 | XCELERA ---
[id number]
[2024-12-27] MEDS: VALSARTAN/SACUBITRIL 26/24MG TAB PO SCH (21:31)
[2024-12-27] MEDS: ACETAMINOPHEN 325 MG TAB PO PRN (22:03)
[2024-12-28] MEDS: EMPAGLIFLOZIN 10 MG TAB PO SCH (09:21)
[2024-12-28] MEDS: ATROPINE SULFATE 0.1 MG/ML 10ML SYR IV ONE (10:56)
[2024-12-28] MEDS: DOBUTamine HCL 12.5 MG/ML 20 ML VIAL IV ONE (10:56)
[2024-12-28] MEDS: METOPROLOL TARTRATE 1 MG/ML VIAL IV ONE (10:57)
--- NOTE | 2024-12-28 14:50 | Hospitalist Progress Note ---
Date of Service December 28, 2024 Assessment & Plan (1) Bilateral pleural effusion: Plan: Acute HFpEF in setting of Atrial Flutter with RVR Cardiology consult appreciated Lasix IV Started coreg Echo showing EF 35% Stress test ordered-canceled 2nd to patient behavior (2) Atrial flutter with rapid ventricular response: Plan: -now in NSR -con't eliquis (3) Hypertension: Plan: -coreg (4) Diastasis of rectus abdominis: Plan: -surgical consult appreciated -no intervention necessary Plan 64-year-old male with history of hypertension, hyperlipidemia presenting with complaint of abdominal pain due to longstanding hernia. Found to be in new onset atrial fibrillation with rapid ventricular response. Concern for possible heart failure given presence of bilateral pleural effusions. Patient is not c omplaining of chest pain, palpitations, shortness of breath. Presently with adequate oxygenation on room air Pt not compliant with staff, refusing medications, district director and testing. Admission and Anticipated Discharge Date Admission Date: December 27, 2024 Subjective Pt refusing all medications, and not complying with nursing staff. Review of Systems Review of Systems: CONST: Negative for fever, body aches and chills. HENT: Negative for neck pain/stiffness, headache, congestion, sore throat, swelling. EYES: Negative for discharge/pain or vision changes. RESP: Negative for cough/hemoptysis and shortness of breath. CV: Negative chest pain, difficulty breathing, palpitations. ABD: Negative pain, nausea, vomiting. : Negative increase frequency, dysuria, blood in urine or stool. MUSC: Negative for muscle aches, edema. SKIN: Negative rash, lesions/sores. NEURO: Negative headache, dizziness, weakness. Physical Exam Physical Exam: GENERAL APPEARANCE NAD, activity normal for age, well developed/ well nourished, no cyanosis, pallor, or diaphoresis. EYES lids/conjunctiva normal. EARS/NOSE/THROAT Mucous membranes moist, nares normal, lips/teeth normal uvula midline without oral pharyngeal erythema, exudate or swelling TMs normal bilaterally. No lymphangitis/lymphedema. HEAD/NECK normocephalic atraumatic, no facial trauma, neck is supple. RESPIRATORY respiratory effort normal, speaks in full sentences, no tripod position, no accessory muscle use. Lungs clear to auscultation without rhonchi, wheezes, rales CARDIAC Regular rate and rhythm, no edema. ABDOMINAL Soft, ND/NT. No evidence of fluid wave. No pulsatile masses on exam, rebound tenderness, Pabon sign or pain over Mcburney's point. MUSCLES/EXTREMITIES No abnormal range of motion, no swelling. SKIN Warm, pink and dry. No rashes, dermatoses, petechiae or lesions. NEUROLOGICAL Speech is clear and appropriate. Normal level of consciousness. Gait and coordination are normal. 5/5 strength in all extremities. PSYCH Normal mood and affect. Judgement/competence is appropriate Results & Data Results & Data Vital Signs (Past 12 Hours) Vital Signs Temp Pulse Resp BP Pulse Ox O2 Del Method 12/28/24 06:59 36.4 C L 95 H 20 135/75 91 Room Air PG Care Time/CCT Total # of Minutes Spent Total Time Spent with Patient: Total time spent is greater than 50% in coordination of care (as documented) at patient's floor/unit and/or counseling patient: Coding Level of Care Code 95590 SUB INP/OBS CARE 2/35MIN Diagnoses Bilateral pleural effusion J90 Atrial flutter with rapid ventricular response I48.92 Hypertension I10 Diastasis of rectus abdominis M62.08
[2024-12-28 20:34] LABS: Hematocrit (blood only) 42.8 % (42.0-52.0); Hemoglobin 14.8 g/dl (14.0-18.0); Mean Corpuscular Hemoglobin 30.0 pg (25.0-34.0); Mean Corpuscular Volume 86.8 fL (80.0-100.0); Platelet Count 206 K/uL (130-400); RDW Standard Deviation 43.2 fL (36.4-46.3); Red Blood Count 4.93 M/uL (4.70-6.10); White Blood Count 6.02 K/ul (4.8-10.8)
[2024-12-28 20:48] LABS: Anion Gap 4.0 (3-11); Blood Urea Nitrogen 19.0 mg/dl (6-23); Calcium 8.2 mg/dl (8.6-10.3); Carbon Dioxide 26.0 mmol/L (21-32); Chloride 107.0 mmol/L (98-107); Creatinine Clr Calc Pharmacy 61.5 ml/min; Glucose 111.0 mg/dl (70-99(Fasting)); Potassium 4.1 mmol/L (3.5-5.1); Sodium 137.0 mmol/L (136-145)
--- NOTE | 2024-12-29 11:34 | Hospitalist Progress Note ---
Date of Service December 29, 2024 Assessment & Plan (1) Bilateral pleural effusion: Plan: Acute HFpEF in setting of Atrial Flutter with RVR Cardiology consult appreciated Lasix IV 20mg BID Started coreg Echo showing EF 35% Stress test results pending (2) Atrial flutter with rapid ventricular response: Plan: -now in NSR -con't eliquis (3) Hypertension: Plan: -coreg (4) Diastasis of rectus abdominis: Plan: -surgical consult appreciated -no intervention necessary Plan 64-year-old male with history of hypertension, hyperlipidemia presenting with complaint of abdominal pain due to longstanding hernia. Found to be in new onset atrial fibrillation with rapid ventricular response. Concern for possible heart failure given presence of bilateral pleural effusions. Patient is not complaining of chest pain, palpitations, shortness of breath. Presently with adequate oxygenation on room air Pt not compliant with staff, refusing medications, manager monitoring. Awaiting stress test results prior to d/c home Admission and Anticipated Discharge Date Admission Date: December 27, 2024 Subjective No events overnight. Pt remaining noncompliant with nursing staff. Still complaining of difficulty breathing. Review of Systems Review of Systems: CONST: Negative for fever, body aches and chills. HENT: Negative for neck pain/stiffness, headache, congestion, sore throat, swelling. EYES: Negative for discharge/pain or vision changes. RESP: Negative for cough/hemoptysis and shortness of breath. CV: Negative chest pain, difficulty breathing, palpitations. ABD: Negative pain, nausea, vomiting. : Negative increase frequency, dysuria, blood in urine or stool. MUSC: Negative for muscle aches, edema. SKIN: Negative rash, lesions/sores. NEURO: Negative headache, dizziness, weakness. Physical Exam Physical Exam: GENERAL APPEARANCE NAD, activity normal for age, well developed/ well nourished, no cyanosis, pallor, or diaphoresis. EYES lids/conjunctiva normal. EARS/NOSE/THROAT Mucous membranes moist, nares normal, lips/teeth normal uvula midline without oral pharyngeal erythema, exudate or swelling TMs normal bilaterally. No lymphangitis/lymphedema. HEAD/NECK normocephalic atraumatic, no facial trauma, neck is supple. RESPIRATORY respiratory effort normal, speaks in full sentences, no tripod position, no accessory muscle use. Lungs clear to auscultation without rhonchi, wheezes, rales CARDIAC Regular rate and rhythm, no edema. ABDOMINAL Soft, ND/NT. No evidence of fluid wave. No pulsatile masses on exam, rebound tenderness, Pabon sign or pain over Mcburney's point. MUSCLES/EXTREMITIES No abnormal range of motion, no swelling. SKIN Warm, pink and dry. No rashes, dermatoses, petechiae or lesions. NEUROLOGICAL Speech is clear and appropriate. Normal level of consciousness. Gait and coordination are normal. 5/5 strength in all extremities. PSYCH Normal mood and affect. Judgement/competence is appropriate Results & Data Results & Data Vital Signs (Past 12 Hours) Vital Signs Temp Pulse Resp BP Pulse Ox O2 Del Method 12/29/24 10:09 Room Air 12/29/24 07:36 36.6 C 72 16 150/85 H 95 Room Air PG Care Time/CCT Total # of Minutes Spent Total Time Spent with Patient: Total time spent is greater than 50% in coordination of care (as documented) at patient's floor/unit and/or counseling patient: Coding Level of Care Code 90265 SUB INP/OBS CARE 2/35MIN Diagnoses Bilateral pleural effusion J90 Atrial flutter with rapid ventricular response I48.92 Hypertension I10 Diastasis of rectus abdominis M62.08
--- NOTE | 2024-12-29 18:13 | Cardiology Progress Note ---
Date of Service December 29, 2024 Assessment & Plan (1) Heart failure with reduced ejection fraction (HFrEF): (2) Atrial flutter with rapid ventricular response: (3) Elevated troponin: Plan 1. CHF: This appears to be due to his left ventricular dysfunction, we will need to gradually titrate his heart failure medications. So far he seems to be doing well on them. 2. Atrial flutter: He appears to have a paroxysmal arrhythmia but still should be treated with anticoagulation as he is. With titration of his beta-annelise his heart rate should be fairly well-controlled if he goes back into his atrial arrhythmia. 3. Troponin elevation: His troponin has decreased although remains elevated, this may be indicative of coronary disease although I do not believe it is indicative of acute myocardial infarction. We should plan on catheterization if the patient is willing. Admission and Anticipated Discharge Date Admission Date: December 27, 2024 Results & Data Vital Signs (Past 12 Hours) Vital Signs Temp Pulse Resp BP Pulse Ox O2 Del Method 12/29/24 17:10 36.6 C 73 16 124/75 93 Room Air 12/29/24 10:09 Room Air 12/29/24 07:36 36.6 C 72 16 150/85 H 95 Room Air Laboratory Results Cardiac Enzymes 12/28/24 12/29/24 Range/Units 20:15 01:07 Troponin I High Sens 41.7 H D 43.8 H (0-20) pg/ml CBC 12/28/24 Range/Units 20:15 WBC 6.02 (4.8-10.8) K/ul RBC 4.93 (4.70-6.10) M/uL Hgb 14.8 (14.0-18.0) g/dl Hct 42.8 (42.0-52.0) % Plt Count 206 (130-400) K/uL Comprehensive Metabolic Panel 12/28/24 Range/Units 20:15 Sodium 137 (136-145) mmol/L Potassium 4.1 (3.5-5.1) mmol/L Chloride 107 (98-107) mmol/L Carbon Dioxide 26 (21-32) mmol/L BUN 19 (6-23) mg/dl Creatinine 1.36 (0.6-1.4) mg/dl Glucose 111 H (70-99(Fasting)) mg/dl Calcium 8.2 L (8.6-10.3) mg/dl Intake and Output 12/29/24 12/29/24 12/29/24 06:59 14:59 22:59 Other: Weight 102.4 kg Weight Measurement Method [facility] Diagnostic Findings His stress test was read although for some reason it does not appear in his chart as yet. He had no real change in his left ventricular function with dobutamine so that it was a nondiagnostic study, he will probably need coronary angiography. PG Care Time/CCT Total # of Minutes Spent Total Time Spent with Patient: Total time spent is greater than 50% in coordination of care (as documented) at patient's floor/unit and/or counseling patient: Coding Level of Care Code 26126 SUB INP/OBS CARE 2/35MIN Diagnoses Heart failure with reduced ejection fraction (HFrEF) I50.20 Atrial flutter with rapid ventricular response I48.92 Elevated troponin R79.89
--- NOTE | 2024-12-30 09:07 | Electrocardiogram Report ---
Test Reason : Blood Pressure : */* mmHG Vent. Rate : 83 BPM Atrial Rate : 83 BPM P-R Int : 124 ms QRS Dur : 90 ms QT Int : 432 ms P-R-T Axes : 61 62 68 degrees QTcB Int : 507 ms Sinus rhythm with Premature atrial complexes with Aberrant conduction Nonspecific T wave abnormality Abnormal ECG When compared with ECG of 26-Dec-2024 21:56, (unconfirmed) Sinus rhythm has replaced Atrial flutter Vent. rate has decreased by 45 bpm Nonspecific T wave abnormality now evident in Anterior leads Confirmed by Inder Lal ([id number]) on 12/30/2024 9:07:13 AM Referred By: REFERRED SELF Confirmed By: Inder Lal
--- NOTE | 2024-12-30 09:23 | Electrocardiogram Report ---
Test Reason : Blood Pressure : */* mmHG Vent. Rate : 128 BPM Atrial Rate : 315 BPM P-R Int : * ms QRS Dur : 94 ms QT Int : 344 ms P-R-T Axes : * 48 0 degrees QTcB Int : 502 ms Atrial flutter with variable A-V block Minimal voltage criteria for LVH, may be normal variant ( [place] product ) Abnormal ECG When compared with ECG of 26-May-2012 12:13, Atrial flutter is now Present Confirmed by Inder Lal ([id number]) on 12/30/2024 9:23:25 AM Referred By: REFERRED SELF Confirmed By: Inder Lal
--- NOTE | 2024-12-30 09:36 | Hospitalist Progress Note ---
Date of Service December 30, 2024 Assessment & Plan (1) Bilateral pleural effusion: Plan: Acute HFpEF in setting of Atrial Flutter with RVR Cardiology consult appreciated Lasix IV 20mg BID Started coreg Echo showing EF 35% Cardiology recommending cardiac cath Patient agreeing (2) Atrial flutter with rapid ventricular response: Plan: -now in NSR -con't eliquis (3) Hypertension: Plan: -coreg (4) Diastasis of rectus abdominis: Plan: -surgical consult appreciated -no intervention necessary Plan 64-year-old male with history of hypertension, hyperlipidemia presenting with complaint of abdominal pain due to longstanding hernia. Found to be in new onset atrial fibrillation with rapid ventricular response. Concern for possible heart failure given presence of bilateral pleural effusions. Patient is not complaining of chest pain, palpitations, shortness of breath. Presently with adequate oxygenation on room air Pt agreeing to cardiac cath. Admission and Anticipated Discharge Date Admission Date: December 27, 2024 Subjective No events overnight. Pt resting in bed. Review of Systems Review of Systems: CONST: Negative for fever, body aches and chills. HENT: Negative for neck pain/stiffness, headache, congestion, sore throat, swelling. EYES: Negative for discharge/pain or vision changes. RESP: Negative for cough/hemoptysis and shortness of breath. CV: Negative chest pain, difficulty breathing, palpitations. ABD: Negative pain, nausea, vomiting. : Negative increase frequency, dysuria, blood in urine or stool. MUSC: Negative for muscle aches, edema. SKIN: Negative rash, lesions/sores. NEURO: Negative headache, dizziness, weakness. Physical Exam Physical Exam: GENERAL APPEARANCE NAD, activity normal for age, well developed/ well nourished, no cyanosis, pallor, or diaphoresis. EYES lids/conjunctiva normal. EARS/NOSE/THROAT Mucous membranes moist, nares normal, lips/teeth normal uvula midline without oral pharyngeal erythema, exudate or swelling TMs normal bilaterally. No lymphangitis/lymphedema. HEAD/NECK normocephalic atraumatic, no facial trauma, neck is supple. RESPIRATORY respiratory effort normal, speaks in full sentences, no tripod position, no accessory muscle use. Lungs clear to auscultation without rhonchi, wheezes, rales CARDIAC Regular rate and rhythm, no edema. ABDOMINAL Soft, ND/NT. No evidence of fluid wave. No pulsatile masses on exam, rebound tenderness, Pabon sign or pain over Mcburney's point. MUSCLES/EXTREMITIES No abnormal range of motion, no swelling. SKIN Warm, pink and dry. No rashes, dermatoses, petechiae or lesions. NEUROLOGICAL Speech is clear and appropriate. Normal level of consciousness. Gait and coordination are normal. 5/5 strength in all extremities. PSYCH Normal mood and affect. Judgement/competence is appropriate Results & Data Results & Data Vital Signs (Past 12 Hours) Vital Signs Pulse Resp BP Pulse Ox O2 Del Method 12/30/24 07:57 78 16 146/94 H 93 Room Air PG Care Time/CCT Total # of Minutes Spent Total Time Spent with Patient: Total time spent is greater than 50% in coordination of care (as documented) at patient's floor/unit and/or counseling patient: Coding Level of Care Code 44756 SUB INP/OBS CARE 2/35MIN Diagnoses Bilateral pleural effusion J90 Atrial flutter with rapid ventricular response I48.92 Hypertension I10 Diastasis of rectus abdominis M62.08
--- NOTE | 2024-12-31 09:00 | Hospitalist Progress Note ---
Date of Service December 31, 2024 Assessment & Plan (1) Bilateral pleural effusion: Plan: Acute HFpEF in setting of Atrial Flutter with RVR Cardiology consult appreciated Lasix IV 20mg BID Started coreg Echo showing EF 35% Cardiology recommending cardiac cath Patient agreeing Awaiting inpatient scheduled date, possibly 01/01 (2) Atrial flutter with rapid ventricular response: Plan: -now in NSR -con't eliquis (3) Hypertension: Plan: -coreg (4) Diastasis of rectus abdominis: Plan: -surgical consult appreciated -no intervention necessary Plan 64-year-old male with history of hypertension, hyperlipidemia presenting with complaint of abdominal pain due to longstanding hernia. Found to be in new onset atrial fibrillation with rapid ventricular response. Concern for possible heart failure given presence of bilateral pleural effusions. Patient is not complaining of chest pain, palpitations, shortness of breath. Presently with adequate oxygenation on room air Pt agreeing to cardiac cath. Admission and Anticipated Discharge Date Admission Date: December 27, 2024 Subjective No events overnight. Pt denies and chest pain or SOB. Review of Systems Review of Systems: CONST: Negative for fever, body aches and chills. HENT: Negative for neck pain/stiffness, headache, congestion, sore throat, swelling. EYES: Negative for discharge/pain or vision changes. RESP: Negative for cough/hemoptysis and shortness of breath. CV: Negative chest pain, difficulty breathing, palpitations. ABD: Negative pain, nausea, vomiting. : Negative increase frequency, dysuria, blood in urine or stool. MUSC: Negative for muscle aches, edema. SKIN: Negative rash, lesions/sores. NEURO: Negative headache, dizziness, weakness. Physical Exam Physical Exam: GENERAL APPEARANCE NAD, activity normal for age, well developed/ well nourished, no cyanosis, pallor, or diaphoresis. EYES lids/conjunctiva normal. EARS/NOSE/THROAT Mucous membranes moist, nares normal, lips/teeth normal uvula midline without oral pharyngeal erythema, exudate or swelling TMs normal bilaterally. No lymphangitis/lymphedema. HEAD/NECK normocephalic atraumatic, no facial trauma, neck is supple. RESPIRATORY respiratory effort normal, speaks in full sentences, no tripod pos ition, no accessory muscle use. Lungs clear to auscultation without rhonchi, wheezes, rales CARDIAC Regular rate and rhythm, no edema. ABDOMINAL Soft, ND/NT. No evidence of fluid wave. No pulsatile masses on exam, rebound tenderness, Pabon sign or pain over Mcburney's point. MUSCLES/EXTREMITIES No abnormal range of motion, no swelling. SKIN Warm, pink and dry. No rashes, dermatoses, petechiae or lesions. NEUROLOGICAL Speech is clear and appropriate. Normal level of consciousness. Gait and coordination are normal. 5/5 strength in all extremities. PSYCH Normal mood and affect. Judgement/competence is appropriate Results & Data Results & Data Vital Signs (Past 12 Hours) Vital Signs Temp Pulse Resp BP Pulse Ox O2 Del Method 12/31/24 08:34 36.3 C L 57 L 18 108/72 94 Room Air PG Care Time/CCT Total # of Minutes Spent Total Time Spent with Patient: Total time spent is greater than 50% in coordination of care (as documented) at patient's floor/unit and/or counseling patient: Coding Level of Care Code 71390 SUB INP/OBS CARE 2/35MIN Diagnoses Bilateral pleural effusion J90 Atrial flutter with rapid ventricular response I48.92 Hypertension I10 Diastasis of rectus abdominis M62.08
[2024-12-31 09:03] LABS: Hematocrit (blood only) 51.5 % (42.0-52.0); Hemoglobin 17.6 g/dl (14.0-18.0); Mean Corpuscular Hemoglobin 29.8 pg (25.0-34.0); Mean Corpuscular Volume 87.1 fL (80.0-100.0); Platelet Count 259 K/uL (130-400); RDW Standard Deviation 44.3 fL (36.4-46.3); Red Blood Count 5.91 M/uL (4.70-6.10); White Blood Count 6.72 K/ul (4.8-10.8)
[2024-12-31 09:20] LABS: Anion Gap 7.0 (3-11); Blood Urea Nitrogen 26.0 mg/dl (6-23); Calcium 9.1 mg/dl (8.6-10.3); Carbon Dioxide 29.0 mmol/L (21-32); Chloride 102.0 mmol/L (98-107); Creatinine Clr Calc Pharmacy 72.5 ml/min; Glucose 161.0 mg/dl (70-99(Fasting)); Potassium 4.0 mmol/L (3.5-5.1); Sodium 138.0 mmol/L (136-145)
[2024-12-31] MEDS: METOPROLOL TARTRATE 1 MG/ML VIAL IV STA ×2 (21:31→22:10)
[2025-01-01] MEDS: METOPROLOL TARTRATE 1 MG/ML VIAL IV PRN (07:35)
--- NOTE | 2025-01-01 10:56 | Hospitalist Progress Note ---
Date of Service January 01, 2025 Assessment & Plan (1) Bilateral pleural effusion: Plan: This is a 64-year-old male with history of hypertension, hyperlipidemia presenting with complaint of abdominal pain due to longstanding hernia. Found to be in new onset atrial fibrillation with rapid ventricular response. Concern for possible heart failure given presence of bilateral pleural effusions. 1.Acute HFpEF in setting of Atrial Flutter with RVR 2 D ECHO done, EF 30-35 % with wall motion abnormality Cardiology on consult Await recommendations Continue Lasix 20mg BID Cardvedilol Monitor I/O, daily weights (2) Atrial flutter with rapid ventricular response: Plan: -now in NSR -con't eliquis 5mg BID (3) Hypertension: Plan: BP is under good control -coreg (4) Diastasis of rectus abdominis: Plan: -surgical consult appreciated -no intervention necessary Plan Await recs from cardiology Admission and Anticipated Discharge Date Admission Date: December 27, 2024 Subjective patient seen and examined, says he is not feeling well, feels nauseous Review of Systems Review of Systems: All systems reviewed are negative, apart from the ones contained in the history. Physical Exam Physical Exam: The patient is awake, alert and oriented 3, well developed and well nourished, normocephalic and atraumatic, lying in bed and in no acute distress. HEENT--PERRL, EOMI, mucous membranes and oropharynx mildly dry Neck--supple. No JVD. No bruits. Thyroid normal, trachea midline, no adenopathy. Heart--normal S1 and S2. No murmurs, rubs or gallops. Lungs--clear bilaterally, no respiratory distress, no accessory muscle use. Abdomen--normal bowel sounds and soft. Extremities--no cyanosis or clubbing. No edema. Dermatologic--normal skin turgor, normal color, no abnormal lymph nodes, no rash. Neurologic--cranial nerves II through XII grossly intact. Rheumatologic--normal range of motion. Psychiatric--normal affect. Results & Data Results & Data Vital Signs (Past 12 Hours) Vital Signs Temp Pulse Pulse Resp BP BP Pulse Ox 01/01/25 10:27 109 H 01/01/25 08:36 89 122/72 01/01/25 07:39 128 H 01/01/25 07:35 128 H 123/59 L 01/01/25 07:30 97.7 F 53 L 18 123/59 L 92 01/01/25 04:00 98.1 F 54 L 18 126/86 98 O2 Del Method 01/01/25 10:27 01/01/25 08:36 01/01/25 07:39 01/01/25 07:35 01/01/25 07:30 Room Air 01/01/25 04:00 Room Air PG Care Time/CCT Total # of Minutes Spent Total Time Spent with Patient: Total time spent is greater than 50% in coordination of care (as documented) at patient's floor/unit and/or counseling patient: Coding Level of Care Code 36150 SUB INP/OBS CARE 2/35MIN Diagnoses Bilateral pleural effusion J90 Atrial flutter with rapid ventricular response I48.92 Hypertension I10 Diastasis of rectus abdominis M62.08 Time Spent (min) 35
[2025-01-01 13:51] LABS: Anion Gap 8.0 (3-11); Blood Urea Nitrogen 28.0 mg/dl (6-23); Calcium 9.0 mg/dl (8.6-10.3); Carbon Dioxide 24.0 mmol/L (21-32); Chloride 104.0 mmol/L (98-107); Creatinine Clr Calc Pharmacy 56.5 ml/min; Glucose 213.0 mg/dl (70-99(Fasting)); Potassium 4.0 mmol/L (3.5-5.1); Sodium 136.0 mmol/L (136-145)
--- NOTE | 2025-01-01 18:52 | Cardiology Progress Note ---
Date of Service January 01, 2025 Assessment & Plan (1) Heart failure with reduced ejection fraction (HFrEF): (2) Cardiomyopathy: (3) Paroxysmal atrial flutter: (4) Mitral regurgitation: (5) Hypertension: Plan ASSESSMENT/PLAN: 1. Heart failure with reduced EF: He appears euvolemic. Unfortunately, fluid balance has not been monitored, although his weight has significantly improved since presentation if the weights are accurate. Given elevated BUN and creatinine today, hold Lasix tonight and tomorrow morning, as well as Entresto. Continue carvedilol. Not initiating mineralocorticoid receptor antagonist in the setting of worsened renal function at this time but could consider in the future. 2. Cardiomyopathy: Etiology uncertain. Cannot rule out tachycardia induced however he seems to have paroxysmal episodes of A-fib and atrial flutter but mostly during this hospital stay, his heart rate has been acceptable. Cardiac catheterization recommended last week by covering digital artist but postponed today given that he received 10 mg of Eliquis this morning. Hold Eliquis this evening and tomorrow morning in anticipation of possible cardiac catheterization tomorrow. Risk and benefits of the procedure were discussed with him in detail and he was agreeable to proceed. Optimize medical therapy and if no significant improvement, would consider ICD for primary prevention after 3 months of therapy. 3. Atrial flutter/fibrillation: Has episodes of atrial flutter and possibly atrial fibrillation when reviewing telemetry. Paroxysmal and he seems to be asymptomatic. Agree with anticoagulation therapy but would recommend 5 mg of Eliquis twice daily rather than 10 mg for stroke risk reduction. Monitor CBC periodically. Continue beta-annelise. If significant recurrence in the future, could consider antiarrhythmic therapy or ablation. 4. Mitral regurgitation: Nonsevere. Can be followed in the outpatient setting with surveillance echo in the future. 5. Hypertension: Blood pressure has been normal, elevated and even charted as hypotensive. Continue current regimen as outlined. 6. Disposition: Cardiology will continue to follow. Patient care communicated with primary hospitalist, Dr. Avendano. On discharge, follow-up with Dr. Babb in the [place] office due to transportation issues and per patient request. Admission and Anticipated Discharge Date Admission Date: December 27, 2024 Subjective Patient seen this morning. He denies chest pain, shortness of breath, syncope, near syncope, palpitations, edema, melena, hematochezia, or hematuria. He denies orthopnea and states that he can lay flat. He states that he came to the hospital due to abdominal discomfort related to his hernia. He had been kept n.p.o. for possible cardiac catheterization today as per note by Dr. Lal on 12/29/2024. He states that he does not follow with physicians in the outpatient setting, although he has a wellness visit from April 2024. He states that he would need to be followed up by cardiology in the [place] office as he does not drive but can walk to the [place] office as it is across the [place] from where he lives. He was unaccompanied. Physical Exam Physical Exam: Gen.: No acute distress. Alert. HEENT: Anicteric sclera. Neck: No JVD. Cardiac: Regular. Normal S1-S2. No murmurs, rubs, or gallops. Pulmonary: Clear to auscultation bilaterally without wheezes, rales, or rhonchi. Abdomen: Soft, nondistended, with normoactive bowel sounds. No bruits noted. Mild central tenderness. Extremities: 2+ radial pulses bilaterally. No edema or cyanosis. Results & Data Vital Signs (Past 12 Hours) Vital Signs Temp Pulse Pulse Resp BP BP Pulse Ox 01/01/25 18:00 163/78 H 01/01/25 17:00 105 H 01/01/25 15:05 36.7 C 75 20 91/62 L 91 01/01/25 13:24 160 H 01/01/25 11:04 41 L 18 121/49 L 95 01/01/25 10:27 109 H 01/01/25 08:36 89 122/72 01/01/25 07:39 128 H 01/01/25 07:35 128 H 123/59 L 01/01/25 07:30 36.5 C 53 L 18 123/59 L 92 O2 Del Method 01/01/25 18:00 01/01/25 17:00 01/01/25 15:05 Room Air 01/01/25 13:24 01/01/25 11:04 Room Air 01/01/25 10:27 01/01/25 08:36 01/01/25 07:39 01/01/25 07:35 01/01/25 07:30 Room Air Intake & Output 12/30/24 12/31/24 01/01/25 01/02/25 06:59 06:59 06:59 06:59 Intake Total 360 / 360 340 / 340 Balance 360 / 360 340 / 340 Weight 223 lb 14.4 oz 220 lb 7.396 oz Laboratory Results Laboratory Results - last 24 hr 01/01/25 13:06 Sodium 136 Potassium 4.0 Chloride 104 Carbon Dioxide 24 Anion Gap 8 BUN 28 H Creatinine 1.45 H D Est Cr Clr Drug Dosing 56.5 eGFR 53.15 BUN/Creatinine Ratio 19.3 Glucose 213 H Calcium 9.0 Diagnostic Findings Labs reviewed and notable for worsened renal function, normal potassium, normal transaminase levels, normal blood counts, excellent LDL. Telemetry personally reviewed: Sinus rhythm with intermittent and sustained atrial flutter and atrial fibrillation at times. (He denies any symptoms during such episodes). Echo report reviewed from 12/27/2024. Echo images personally reviewed and LV systolic function is abnormal. Dobutamine stress echo report and images reviewed from 12/28/2024: LV systolic function did not significantly improved with escalating doses of dobutamine. Medications Administered Current Inpatient Medications Acetaminophen (Acetaminophen 325 Mg Tab) 650 mg PO Q4H PRN PRN Reason: Pain or Fever Stop: 01/26/25 03:03 Last Admin: 12/30/24 20:33 Dose: 650 mg Apixaban (Apixaban 5 Mg Tablet) 5 mg PO BID PAULY Stop: 01/31/25 20:59 Carvedilol (Carvedilol 6.25 Mg Tab) 6.25 mg PO BIDM PAULY Stop: 01/31/25 16:59 Last Admin: 01/01/25 16:19 Dose: 6.25 mg Docusate Sodium (Docusate Sodium 100 Mg Cap) 100 mg PO BID PRN PRN Reason: Constipation Stop: 01/26/25 03:03 Empagliflozin (Empagliflozin 10 Mg Tab) 10 mg PO DAILY PAULY Stop: 01/27/25 08:59 Last Admin: 01/01/25 08:32 Dose: 10 mg Furosemide (Furosemide Inj 20 Mg/2 Ml Vial) 20 mg IV BID PAULY Stop: 01/26/25 08:59 Last Admin: 01/01/25 07:37 Dose: 20 mg Metoprolol Tartrate (Metoprolol Tartrate 1 Mg/Ml Vial) 5 mg IV Q4H PRN PRN Reason: sustained HR > 110bpm Stop: 01/26/25 03:03 Last Admin: 01/01/25 07:35 Dose: 5 mg Miscellaneous (Remove Nicoderm Patch) 1 each N/A DAILY@0859 [facility] Stop: 01/26/25 08:58 Last Admin: 01/01/25 07:38 Dose: Not Given Nicotine (Nicotine 7 Mg/24 Hr Tdsy) 1 patch TD QAM [facility] Stop: 01/26/25 08:59 Last Admin: 01/01/25 07:38 Dose: Not Given Ondansetron HCl (Ondansetron Inj 2 Mg/Ml 2 Ml Vial) 4 mg IV Q6H PRN PRN Reason: Nausea And Vomiting Stop: 01/26/25 03:03 Quetiapine Fumarate (Quetiapine Fumarate 100 Mg Tablet) 100 mg PO HS [facility] Stop: 01/26/25 20:59 Last Admin: 12/31/24 20:22 Dose: 100 mg Sacubitril/Valsartan (Valsartan/Sacubitril 26/24mg Tab) 1 tab PO BID [facility] Stop: 01/26/25 20:59 Last Admin: 01/01/25 08:32 Dose: 1 tab Sodium Chloride (Sodium Chloride 0.65% Na Soln 45 Ml (Gonzales)) 2 sprays NA QID PRN PRN Reason: congestion Stop: 01/26/25 03:03 PG Care Time/CCT Total # of Minutes Spent Total Time Spent with Patient: Total time spent is greater than 50% in coordination of care (as documented) at patient's floor/unit and/or counseling patient: Coding Level of Care Code 71423 SUB INP/OBS CARE 3/50MIN Diagnoses Heart failure with reduced ejection fraction (HFrEF) I50.20 Cardiomyopathy I42.9 Paroxysmal atrial flutter I48.92 Mitral regurgitation I34.0 Hypertension I10
--- NOTE | 2025-01-02 09:41 | Hospitalist Progress Note ---
Date of Service January 02, 2025 Assessment & Plan (1) Bilateral pleural effusion: Plan: This is a 64-year-old male with history of hypertension, hyperlipidemia presenting with complaint of abdominal pain due to longstanding hernia. Found to be in new onset atrial fibrillation with rapid ventricular response. Concern for possible heart failure given presence of bilateral pleural effusions. 1.Acute HFpEF in setting of Atrial Flutter with RVR 2 D ECHO done, EF 30-35 % with wall motion abnormality Cardiology on consult Will have a cardiac cath today Continue Lasix 20mg BID Carvedilol Monitor I/O, daily weights (2) Atrial flutter with rapid ventricular response: Plan: -Paroxysmal -con't eliquis 5mg BID Continue carvedilol 6.25mg BID (3) Hypertension: Plan: BP is under good control -coreg (4) Diastasis of rectus abdominis: Plan: -surgical consult appreciated -no intervention necessary Plan hopefully d/c in the next 24 hrs Admission and Anticipated Discharge Date Admission Date: December 27, 2024 Subjective patient seen and examined, lying quietly in bed, no new complaints, will have cardiac cath today Review of Systems Review of Systems: All systems reviewed are negative, apart from the ones contained in the history. Physical Exam Physical Exam: The patient is awake, alert and oriented 3, well developed and well nourished, normocephalic and atraumatic, lying in bed and in no acute distress. HEENT--PERRL, EOMI, mucous membranes and oropharynx mildly dry Neck--supple. No JVD. No bruits. Thyroid normal, trachea midline, no adenopathy. Heart--normal S1 and S2. No murmurs, rubs or gallops. Lungs--clear bilaterally, no respiratory distress, no accessory muscle use. Abdomen--normal bowel sounds and soft. Extremities--no cyanosis or clubbing. No edema. Dermatologic--normal skin turgor, normal color, no abnormal lymph nodes, no rash. Neurologic--cranial nerves II through XII grossly intact. Rheumatologic--normal range of motion. Psychiatric--normal affect. Results & Data Results & Data Vital Signs (Past 12 Hours) Vital Signs Temp Pulse Pulse Resp BP Pulse Ox O2 Del Method 01/02/25 07:35 98.6 F 51 L 16 129/78 96 Room Air 01/02/25 07:00 98 H 01/02/25 02:52 97.9 F 55 L 16 122/71 94 Room Air 01/01/25 23:27 98.1 F 85 16 132/75 94 Room Air 01/01/25 22:00 138 H PG Care Time/CCT Total # of Minutes Spent Total Time Spent with Patient: Total time spent is greater than 50% in coordination of care (as documented) at patient's floor/unit and/or counseling patient: Coding Level of Care Code 55370 SUB INP/OBS CARE 2/35MIN Diagnoses Bilateral pleural effusion J90 Atrial flutter with rapid ventricular response I48.92 Hypertension I10 Diastasis of rectus abdominis M62.08 Time Spent (min) 35
[2025-01-02 10:12] LABS: Anion Gap 7.0 (3-11); Blood Urea Nitrogen 23.0 mg/dl (6-23); Calcium 8.7 mg/dl (8.6-10.3); Carbon Dioxide 23.0 mmol/L (21-32); Chloride 106.0 mmol/L (98-107); Creatinine Clr Calc Pharmacy 69.0 ml/min; Glucose 102.0 mg/dl (70-99(Fasting)); Potassium 4.2 mmol/L (3.5-5.1); Sodium 136.0 mmol/L (136-145)
--- NOTE | 2025-01-02 12:38 | Pre Anesthesia Assessment ---
Date of Service January 02, 2025 Pre Sedation Assessment Vital Signs Temp Pulse Pulse Resp BP BP Pulse Ox 01/02/25 12:14 95 H 20 125/77 94 01/02/25 07:35 37.0 C 51 L 16 129/78 96 01/02/25 07:00 98 H 01/02/25 02:52 36.6 C 55 L 16 122/71 94 01/01/25 23:27 36.7 C 85 16 132/75 94 01/01/25 22:00 138 H 01/01/25 21:08 01/01/25 20:16 36.7 C 76 18 114/74 94 01/01/25 18:00 163/78 H 01/01/25 17:00 105 H 01/01/25 15:05 36.7 C 75 20 91/62 L 91 01/01/25 13:24 160 H O2 Del Method 01/02/25 12:14 Room Air 01/02/25 07:35 Room Air 01/02/25 07:00 01/02/25 02:52 Room Air 01/01/25 23:27 Room Air 01/01/25 22:00 01/01/25 21:08 Room Air 01/01/25 20:16 Room Air 01/01/25 18:00 01/01/25 17:00 01/01/25 15:05 Room Air 01/01/25 13:24 Cardiovascular + irregularly irregular Respiratory normal respiratory effort, lungs clear to auscultation Pre-Sedation Airway Assessment Smoking Status: Current every day smoker Hx Sleep Apnea: No Short, Thick Neck: Yes Thyromental Distance: > or= 3.5 Finger Breadths Oral Cavity: + WNL Mallampati Class: IV ASA: ASA3 NPO Status Date of Last Intake of Fluids: 01/02/25 Time of Last Intake of Fluids: 09:00 Date of Last Intake of Solid Food: 01/01/25 Time of Last Intake of Solid Foods: 18:00 Procedure Planning Contraindications for Sedation: none Current Medications Reviewed: Yes Notes The planned sedation has been discussed with the patient. Informed Consent was obtained. I have identified the patient, determined the appropriateness of sedation and have assessed the patient immediately prior to the procedure. All medicine(s) and interventions are by my order.
[2025-01-02] MEDS: ASPIRIN 325 MG ECTAB PO ONE (13:09)
[2025-01-02] MEDS: IODIXANOL (VISIPAQUE) 320 MG/ML 100ML IV ONE (13:10)
[2025-01-02] MEDS: niCARdipine 2,000 MCG/20 ML SYR ONE (13:10)
[2025-01-02] MEDS: NITROGLYCERIN/D5W 100MCG/ML 20ML SYR ONE (13:11)
[2025-01-02] MEDS: MIDAZOLAM HCL 1 MG/ML 2ML VIAL ONE (13:47)
--- NOTE | 2025-01-02 13:47 | Post Anesthesia Assessment ---
Date of Service January 02, 2025 Post Sedation Assessment Vital Signs Temp Pulse Pulse Resp BP BP Pulse Ox 01/02/25 12:14 95 H 20 125/77 94 01/02/25 07:35 37.0 C 51 L 16 129/78 96 01/02/25 07:00 98 H 01/02/25 02:52 36.6 C 55 L 16 122/71 94 01/01/25 23:27 36.7 C 85 16 132/75 94 01/01/25 22:00 138 H 01/01/25 21:08 01/01/25 20:16 36.7 C 76 18 114/74 94 01/01/25 18:00 163/78 H 01/01/25 17:00 105 H 01/01/25 15:05 36.7 C 75 20 91/62 L 91 O2 Del Method 01/02/25 12:14 Room Air 01/02/25 07:35 Room Air 01/02/25 07:00 01/02/25 02:52 Room Air 01/01/25 23:27 Room Air 01/01/25 22:00 01/01/25 21:08 Room Air 01/01/25 20:16 Room Air 01/01/25 18:00 01/01/25 17:00 01/01/25 15:05 Room Air Recovery Score Activity: Moves 4 extremities Respiration: Deep Breath/Cough Circulation: +/-20% PreAnes Value Consciousness: Fully Awake Oxygen Saturation: > 92% On Room Air Discharge Sedation Level of Care: Fast Track Phase II Post Sedation Plan On clinical assessment, the patient appears to have tolerated the sedation without complications. Patient is recovering as anticipated. Patient will continue to be monitored by nursing and may be discharged when sedation discharge criteria are met per below protocol. Upon Completions of procedure up to 15 minutes continue every 5 minute vital signs and the P.A.R. score; then discharge to a Phase I or Fast Track to Phase II per the following guidelines: * Discharge Patient to appropriate Phase II area if PAR is 8 or greater or return to pre- procedure baseline. The post - procedure orders will be as directed. * If PAR score is less than 8 or not return to pre-procedure baseline then patient will follow Phase I monitoring till PAR is reached for Phase II. The Phase I may be done in procedure room or may call to secure a Phase I area. * If naloxone or flumazenil are used for reversal, hold in Phase I for continued monitoring from when last reversal dose was given for a minimum of 60 minutes or longer pending the nurse and/or physician discretion of patient condition before discharge to Phase II. Please call the Sedation Physician to re-evaluate and complete post-note for discharge to Phase II area. Do NOT discharge from procedure sedation or Phase 1 until post- sedation evaluation note is complete by procedure /sedation MD Sedation Discharge Instructions to be given to the patient at discharge to home.
[2025-01-02] MEDS: HEPARIN (PORCINE) 1000 UNIT/ML 10 ML (CATH LAB USE ONLY) ONE (13:48)
[2025-01-02] MEDS: OPTIRAY 350 ONE (13:48)
--- NOTE | 2025-01-02 13:50 | Post Operative Brief Note ---
Cardiology Brief Post Op Date of Surgery January 02, 2025 Pre & Post Diagnosis Operation Date: 01/02/25 12:00 <No data on this case meets the specified criteria> Procedure coronary angiography and left heart cath Show Girl Antoni Back MD Grinding And Polishing Laborer [facility] Estimated Blood Loss 15 Findings Consistent with Post-Op Diagnosis Non-obstructive CAD. formal report to follow after further review. Complications none Disposition Disposition: PCU
--- NOTE | 2025-01-02 14:12 | Cardiac Catheterization ---
[facility] Data: Coater Cardiac Status Clinical evaluation leading to the procedure CAD Presenation: No Sxs, No angina Anginal Classification: No Symptoms Heart Failure: NYHA Class: CCS I Cardiogenic Shock within 24 Hours: No Cardiac Arrest within 24 Hours: No Imaging Studies Past 6 Months: Yes Coronary Anatomy Dominant: Co-Dominant Diagnostic Physicians Name: Antoni Back MD Status: Elective Closure Device Percutaneous Entry Location: Radial Closure Device: Radial Band Recommendations: Management Recommendatons Cardiac Cath Procedure Full Procedure Date January 02, 2025 Pre-Procedure Diagnosis Pre-Procedure Diagnosis: Cardiomyopathy AUC Score AUC Score: 7 Post-Procedure Diagnosis Post-Procedure Diagnosis: Moderate CAD Procedure(s) Performed Procedure(s) Performed: Coronary Angiography and Left Heart Cath Dry Kiln Operator Antoni Back MD Personal Banker(s) [place] Estimated Blood Loss Estimated Blood Loss: < 20 ml Medication(s) Medication(s): Fentanyl, Heparin, Lidocaine 1%, Nicardipine and Versed Summary of Findings Procedures: 1. Coronary angiography 2. Left heart catheterization 3. Moderate sedation Indication: Mr. Alvarado is a 64-year-old gentleman with newly diagnosed cardiomyopathy, paroxysmal atrial flutter/fibrillation, heart failure with reduced EF, and hypertension. Cardiac catheterization was recommended by initial cardiology consultation to evaluate for ischemia as possible etiology f or his cardiomyopathy. Coronary angiography: 1. Left main: Large-caliber. No significant CAD. 2. Left anterior descending: Early mid LAD 50%. Late mid LAD 60-70% at bifurcation of D3. Small D1. Large D2. Medium caliber D3. KUNAL-3 flow. 3. Circumflex: Large-caliber vessel. Codominant. Circumflex gives rise to small high OM1, medium caliber OM 2, medium caliber OM 3, and large OM 4 with proximal 20%. Circumflex PDA without significant CAD. 4. Right coronary artery: RCA is large and codominant. Luminal irregularities noted within the mid RCA. Very small caliber PL. PDA without significant CAD. Left heart catheterization: 1. Left ventriculography was not performed. 2. No aortic stenosis. 3. Estimated LVEDP 12 mmHg in the setting of atrial flutter. Moderate sedation: 1. Sedation start time: 1:26 PM 2. Sedation end time: 1:46 PM Procedural details: 1. Procedure was performed via the right radial artery without known complication with 6 [place] JL 3.5 and JR4 diagnostic catheters. Impression: 1. Moderate to severe CAD involving the mid LAD, and otherwise mild nonobstructive CAD. 2. Codominant system. 3. Normal left-sided filling pressure. 4. No aortic stenosis. 5. Etiology of cardiomyopathy is nonischemic. Plan: 1. Optimize GDMT for heart failure with reduced EF. 2. Continue treatment for atrial flutter/fibrillation. 3. Risk factor modification. Hemodynamics Rest Ao:: 116/75 Final Ao: 133/77 LV: 115/9/12 Recommendations Recommendations: Management Recommendatons Specimens Specimens: None Radiation Exposure (mGy) 897 mGy. Fluoro time 2.7 min. Contrast (mls) 60 ml Procedural Complication(s) None Disposition PCU I attest to the content of the Intraoperative Record and any orders documented therein. Any exceptions are noted below. [facility] Card Cath Procedure Codes Cardiac Catheterization Procedure 1: Cardiovascular Cath Procedures: 95444 Coronaries and LHC (+/-LV) Moderate Sedation Procedure 1: Sedation/Anesthesia: 07634 Mod Sedation by the same physician;Init15 Min Child Age 5 & Up Procedure 2: Sedation/Anesthesia: 16120 Mod Sedation by the same physician; Ea [id number] Minutes PG Care Time/CCT Total # of Minutes Spent Total Time Spent with Patient: Total time spent is greater than 50% in coordination of care (as documented) at patient's floor/unit and/or counseling patient:
--- NOTE | 2025-01-02 18:33 | Cardiology Progress Note ---
Date of Service January 02, 2025 Assessment & Plan (1) Heart failure with reduced ejection fraction (HFrEF): (2) Cardiomyopathy: (3) Paroxysmal atrial flutter: (4) Mitral regurgitation: (5) Hypertension: (6) CAD (coronary artery disease): Plan ASSESSMENT/PLAN: 1. Heart failure with reduced EF: Euvolemic. Unfortunately, fluid balance has not been monitored, although his weight has significantly improved since presentation if the weights are accurate. Resume Entresto tomorrow morning. Continue carvedilol. Mineralocorticoid receptor antagonist has not been initiated due to abnormal renal function yesterday, but after resuming Entresto, if renal function remains stable, would consider spironolactone 25 mg daily, likely in the outpatient setting. 2. Cardiomyopathy: Nonischemic. Degree of coronary artery disease noted on angiography would not account for echo findings and degree of LV systolic dysfunction. Cannot rule out tachycardia induced however he seems to have paroxysmal episodes of A-fib and atrial flutter. GDMT as above. Resuming Entresto tomorrow. Increase carvedilol to 12.5 mg twice daily for better heart rate control. Optimize medical therapy and if no significant improvement, would consider ICD for primary prevention after 3 months of therapy. 3. Atrial flutter/fibrillation: Has episodes of atrial flutter and possibly atrial fibrillation when reviewing telemetry. Paroxysmal. Asymptomatic. Eliquis 5 mg twice daily for stroke risk reduction. Monitor CBC periodically. Continue beta-annelise. Crease carvedilol for improved heart rate control. If rate control strategy is not effective, could consider antiarrhythmic therapy versus ablation. Carvedilol already indicated as above however and therefore will continue to titrate beta-annelise as his arrhythmia is well-tolerated. 4. Mitral regurgitation: Nonsevere. Can be followed in the outpatient setting with surveillance echo in the future. 5. Hypertension: Blood pressure reasonable. Titrating medical therapy as above. 6. CAD: Degree of CAD would not account for his significantly reduced LV systolic function which is also global. No angina. Recommend medical therapy. Continue beta-annelise. Recommend high intensity statin therapy. 7. Medication noncompliance: According to outpatient records, he has not been compliant with medical therapy at times. Encourage compliance. 8. Disposition: Cardiology will continue to follow. Patient care communicated with primary hospitalist, Dr. Avendano. On discharge, follow-up with Dr. Babb in the [place] office due to transportation issues and per patient request. Admission and Anticipated Discharge Date Admission Date: December 27, 2024 Subjective He denies chest pain, shortness of breath, syncope, near syncope, orthopnea, palpitations, or edema. He was unaccompanied when seen this morning and also after his cardiac catheterization Physical Exam Physical Exam: Gen.: No acute distress. Alert. HEENT: Anicteric sclera. Neck: No JVD. Cardiac: Irregularly irregular. Normal S1-S2. No murmurs, rubs, or gallops. Pulmonary: Clear to auscultation bilaterally without wheezes, rales, or rhonchi. Abdomen: Soft, nondistended, with normoactive bowel sounds. No bruits noted. Mi ld central tenderness. Extremities: 2+ radial pulses bilaterally. No edema or cyanosis. Results & Data Vital Signs (Past 12 Hours) Vital Signs Temp Pulse Pulse Resp BP Pulse Ox O2 Del Method 01/02/25 15:00 109 H 01/02/25 14:45 36.3 C L 125 H 20 135/75 95 Room Air 01/02/25 14:30 36.3 C L 124 H 20 141/93 H 96 Room Air 01/02/25 14:25 36.3 C L 52 L 20 141/93 H 94 Room Air 01/02/25 14:05 97 H 18 132/98 98 Room Air 01/02/25 13:50 98 H 18 135/89 98 Room Air 01/02/25 12:14 95 H 20 125/77 94 Room Air 01/02/25 07:35 37.0 C 51 L 16 129/78 96 Room Air 01/02/25 07:00 98 H Intake & Output 12/31/24 01/01/25 01/02/25 01/03/25 06:59 06:59 06:59 06:59 Intake Total 360 / 360 790 / 790 Balance 360 / 360 790 / 790 Weight 220 lb 7.396 oz 225 lb 8.526 oz Laboratory Results Laboratory Results - last 24 hr 01/02/25 09:21 Sodium 136 Potassium 4.2 Chloride 106 Carbon Dioxide 23 Anion Gap 7 BUN 23 Creatinine 1.20 Est Cr Clr Drug Dosing 69.0 eGFR 66.70 BUN/Creatinine Ratio 19.2 Glucose 102 H Calcium 8.7 Diagnostic Findings Labs reviewed and notable for improved renal function. Normal potassium. Telemetry personally reviewed: Sinus rhythm with paroxysmal atrial fibrillation and atrial flutter, with mildly rapid ventricular response. Cardiac cath 01/02/2025: Coronary angiography: 1. Left main: Large-caliber. No significant CAD. 2. Left anterior descending: Early mid LAD 50%. Late mid LAD 60-70% at bifurcation of D3. Small D1. Large D2. Medium caliber D3. KUNAL-3 flow. 3. Circumflex: Large-caliber vessel. Codominant. Circumflex gives rise to small high OM1, medium caliber OM 2, medium caliber OM 3, and large OM 4 with proximal 20%. Circumflex PDA without significant CAD. 4. Right coronary artery: RCA is large and codominant. Luminal irregularities noted within the mid RCA. Very small caliber PL. PDA without significant CAD. Left heart catheterization: 1. Left ventriculography was not performed. 2. No aortic stenosis. 3. Estimated LVEDP 12 mmHg in the setting of atrial flutter. Medications Administered Current Inpatient Medications Acetaminophen (Acetaminophen 325 Mg Tab) 650 mg PO Q4H PRN PRN Reason: Pain or Fever Stop: 01/26/25 03:03 Last Admin: 12/30/24 20:33 Dose: 650 mg Apixaban (Apixaban 5 Mg Tablet) 5 mg PO BID [facility] Stop: 01/31/25 20:59 Carvedilol (Carvedilol 6.25 Mg Tab) 6.25 mg PO BIDM [facility] Stop: 01/31/25 16:59 Last Admin: 01/02/25 18:00 Dose: 6.25 mg Docusate Sodium (Docusate Sodium 100 Mg Cap) 100 mg PO BID PRN PRN Reason: Constipation Stop: 01/26/25 03:03 Empagliflozin (Empagliflozin 10 Mg Tab) 10 mg PO DAILY [facility] Stop: 01/27/25 08:59 Last Admin: 01/02/25 09:01 Dose: 10 mg Furosemide (Furosemide Inj 20 Mg/2 Ml Vial) 20 mg IV BID [facility] Stop: 01/26/25 08:59 Last Admin: 01/01/25 07:37 Dose: 20 mg Metoprolol Tartrate (Metoprolol Tartrate 1 Mg/Ml Vial) 5 mg IV Q4H PRN PRN Reason: sustained HR > 110bpm Stop: 01/26/25 03:03 Last Admin: 01/01/25 07:35 Dose: 5 mg Miscellaneous (Remove Nicoderm Patch) 1 each N/A DAILY@0859 [facility] Stop: 01/26/25 08:58 Last Admin: 01/02/25 08:57 Dose: Not Given Nicotine (Nicotine 7 Mg/24 Hr Tdsy) 1 patch TD QAM [facility] Stop: 01/26/25 08:59 Last Admin: 01/02/25 08:57 Dose: Not Given Ondansetron HCl (Ondansetron Inj 2 Mg/Ml 2 Ml Vial) 4 mg IV Q6H PRN PRN Reason: Nausea And Vomiting Stop: 01/26/25 03:03 Quetiapine Fumarate (Quetiapine Fumarate 100 Mg Tablet) 100 mg PO HS [facility] Stop: 01/26/25 20:59 Last Admin: 01/01/25 20:24 Dose: 100 mg Sacubitril/Valsartan (Valsartan/Sacubitril 26/24mg Tab) 1 tab PO BID [facility] Stop: 01/26/25 20:59 Last Admin: 01/01/25 08:32 Dose: 1 tab Sodium Chloride (Sodium Chloride 0.65% Na Soln 45 Ml ([place])) 2 sprays NA QID PRN PRN Reason: congestion Stop: 01/26/25 03:03 PG Care Time/CCT Total # of Minutes Spent Total Time Spent with Patient: Total time spent is greater than 50% in coordination of care (as documented) at patient's floor/unit and/or counseling patient: Coding Level of Care Code 41664 SUB INP/OBS CARE 3/50MIN Diagnoses Heart failure with reduced ejection fraction (HFrEF) I50.20 Cardiomyopathy I42.9 Paroxysmal atrial flutter I48.92 Mitral regurgitation I34.0 Hypertension I10 CAD (coronary artery disease) I25.10
--- NOTE | 2025-01-03 06:07 | Electrocardiogram Report ---
Test Reason : Blood Pressure : */* mmHG Vent. Rate : 102 BPM Atrial Rate : 306 BPM P-R Int : * ms QRS Dur : 122 ms QT Int : 380 ms P-R-T Axes : 259 37 240 degrees QTcB Int : 495 ms Atrial flutter with 3:1 A-V conduction Non-specific intra-ventricular conduction delay Minimal voltage criteria for LVH, may be normal variant ( Kaden product ) Nonspecific T wave abnormality Abnormal ECG When compared with ECG of 27-Dec-2024 04:48, Atrial flutter has replaced Sinus rhythm T wave inversion now evident in Inferior leads T wave inversion now evident in Lateral leads Confirmed by Antoni Back ([id number]) on 01/03/2025 6:06:57 AM Referred By: REFERRED SELF Confirmed By: Antoni Back
[2025-01-03] MEDS ORDERED: APIXABAN 5 MG TABLET PO SCH (09:00)
[2025-01-03] MEDS: APIXABAN 5 MG TABLET PO SCH (09:06)
--- NOTE | 2025-01-03 11:26 | Hospitalist Progress Note ---
Date of Service January 03, 2025 Assessment & Plan (1) Bilateral pleural effusion: Plan: This is a 64-year-old male with history of hypertension, hyperlipidemia presenting with complaint of abdominal pain due to longstanding hernia. Found to be in new onset atrial fibrillation with rapid ventricular response. Concern for possible heart failure given presence of bilateral pleural effusions. 1.Acute HFpEF in setting of Atrial Flutter with RVR 2 D ECHO done, EF 30-35 % with wall motion abnormality Cardiac cath was done which showed clean coronaries Cardiology on consult He appears compensated, will hold Lasix Carvedilol 12.5 mg twice daily Monitor I/O, daily weights He will follow cardiology outpatient preferably in the office at [place] with Dr. Babb (2) Atrial flutter with rapid ventricular response: Plan: -Paroxysmal -con't eliquis 5mg BID Continue carvedilol 12.5mg BID (3) Hypertension: Plan: BP is Now soft 97/62 May need to reduce the dose of Entresto Will defer to cardiology (4) Diastasis of rectus abdominis: Plan: -surgical consult appreciated -no intervention necessary Plan hopefully d/c in the next 24 hrs Admission and Anticipated Discharge Date Admission Date: December 27, 2024 Subjective Patient seen and examined, lying quietly in bed, denies chest pain Review of Systems Review of Systems: All systems reviewed are negative, apart from the ones contained in the history. Physical Exam Physical Exam: The patient is awake, alert and oriented 3, well developed and well nourished, normocephalic and atraumatic, lying in bed and in no acute distress. HEENT--PERRL, EOMI, mucous membranes and oropharynx mildly dry Neck--supple. No JVD. No bruits. Thyroid normal, trachea midline, no adenopathy. Heart--normal S1 and S2. No murmurs, rubs or gallops. Lungs--clear bilaterally, no respiratory distress, no accessory muscle use. Abdomen--normal bowel sounds and soft. Extremities--no cyanosis or clubbing. No edema. Dermatologic--normal skin turgor, normal color, no abnormal lymph nodes, no r elizabeth. Neurologic--cranial nerves II through XII grossly intact. Rheumatologic--normal range of motion. Psychiatric--normal affect. Results & Data Results & Data Vital Signs (Past 12 Hours) Vital Signs Temp Pulse Pulse Resp BP Pulse Ox O2 Del Method 01/03/25 10:54 97.3 F L 70 20 97/62 L 93 Room Air 01/03/25 08:00 Room Air 01/03/25 07:43 82 01/03/25 07:20 97.5 F L 57 L 20 123/63 96 Room Air 01/02/25 23:31 97.5 F L 58 L 22 153/82 H 96 Room Air PG Care Time/CCT Total # of Minutes Spent Total Time Spent with Patient: Total time spent is greater than 50% in coordination of care (as documented) at patient's floor/unit and/or counseling patient: Coding Level of Care Code 24438 SUB INP/OBS CARE 2/35MIN Diagnoses Bilateral pleural effusion J90 Atrial flutter with rapid ventricular response I48.92 Hypertension I10 Diastasis of rectus abdominis M62.08 Time Spent (min) 35
--- NOTE | 2025-01-03 12:20 | Cardiology Progress Note ---
Date of Service January 03, 2025 Assessment & Plan (1) Heart failure with reduced ejection fraction (HFrEF): (2) Cardiomyopathy: (3) Paroxysmal atrial flutter: (4) Mitral regurgitation: (5) Hypertension: (6) CAD (coronary artery disease): Plan ASSESSMENT/PLAN: 1. Heart failure with reduced EF: Euvolemic. Unfortunately, fluid balance has not been monitored. Continue Entresto and carvedilol. Continue SGLT2 inhibitor. Mineralocorticoid receptor antagonist has not been initiated due to abnormal renal function, but after resuming Entresto, if renal function remains stable, would consider spironolactone 25 mg daily, likely in the outpatient setting. Sodium diet, less than 2000 mg daily. Daily weights. 2. Cardiomyopathy: Nonischemic. Degree of coronary artery disease noted on angiography would not account for echo findings and degree of LV systolic dysfunction. Cannot rule out tachycardia induced however he seems to have paroxysmal episodes of A-fib and atrial flutter. GDMT as above. Continue Entresto, carvedilol, and SGLT2 inhibitor. Optimize medical therapy and if no significant improvement, would consider ICD for primary prevention after 3 months of therapy. 3. Atrial flutter/fibrillation: Has episodes of atrial flutter and atrial fibrillation. Paroxysmal. Asymptomatic. Eliquis 5 mg twice daily for stroke risk reduction. Monitor CBC periodically. Continue beta-annelise. While in A- fib/flutter, heart rates now acceptable with escalating doses of carvedilol. If rate control strategy is not effective, could consider antiarrhythmic therapy versus ablation. 4. Mitral regurgitation: Nonsevere. Can be followed in the outpatient setting with surveillance echo in the future. 5. Hypertension: Blood pressure reasonable. Medical therapy as above.. 6. CAD: Degree of CAD would not account for his significantly reduced LV systol ic function which is also global. No angina. Recommend medical therapy. Continue beta-annelise. Recommend high intensity statin therapy. 7. Medication noncompliance: According to outpatient records, he has not been compliant with medical therapy at times. Encourage compliance. 8. Disposition: Cardiology will sign off at this time. Please follow electrolytes and renal function while hospitalized. Patient care communicated with primary hospitalist, Dr. Avendano. On discharge, follow-up with Dr. Babb in the [place] office due to transportation issues and per patient request. Admission and Anticipated Discharge Date Admission Date: December 27, 2024 Subjective Patient seen late this morning. He denies chest pain, shortness of breath, syncope, near syncope, palpitations, or edema. He has had no issues with his right radial cath site. He stated that he is in no hurry to go to his hotel but inquired when he will be discharged. He was unaccompanied. Physical Exam Physical Exam: Gen.: No acute distress. Alert. HEENT: Anicteric sclera. Neck: No JVD. Cardiac: Regular. Normal S1-S2. No murmurs, rubs, or gallops. Pulmonary: Clear to auscultation bilaterally without wheezes, rales, or rhonchi. Abdomen: Soft, nondistended, with normoactive bowel sounds. No bruits noted. Extremities: 2+ radial pulses bilaterally. Right radial cath site is clean, dry, and intact without erythema or discharge. No edema or cyanosis. Results & Data Vital Signs (Past 12 Hours) Vital Signs Temp Pulse Pulse Resp BP Pulse Ox O2 Del Method 01/03/25 10:54 36.3 C L 70 20 97/62 L 93 Room Air 01/03/25 08:00 Room Air 01/03/25 07:43 82 01/03/25 07:20 36.4 C L 57 L 20 123/63 96 Room Air Intake & Output 01/01/25 01/02/25 01/03/25 01/04/25 06:59 06:59 06:59 06:59 Intake Total 360 / 360 790 / 790 1070 / 1070 Balance 360 / 360 790 / 790 1070 / 1070 Weight 225 lb 8.526 oz Diagnostic Findings Telemetry personally reviewed: Sinus rhythm with paroxysmal atrial fibrillation and atrial flutter. Heart rates in A-fib and a flutter have improved with escalating doses of carvedilol. Medications Administered Current Inpatient Medications Acetaminophen (Acetaminophen 325 Mg Tab) 650 mg PO Q4H PRN PRN Reason: Pain or Fever Stop: 01/26/25 03:03 Last Admin: 12/30/24 20:33 Dose: 650 mg Apixaban (Apixaban 5 Mg Tablet) 5 mg PO BID [facility] Stop: 01/31/25 20:59 Last Admin: 01/03/25 09:06 Dose: 5 mg Carvedilol (Carvedilol 12.5 Mg Tab) 12.5 mg PO BIDM [facility] Stop: 02/02/25 07:59 Last Admin: 01/03/25 09:05 Dose: 12.5 mg Docusate Sodium (Docusate Sodium 100 Mg Cap) 100 mg PO BID PRN PRN Reason: Constipation Stop: 01/26/25 03:03 Empagliflozin (Empagliflozin 10 Mg Tab) 10 mg PO DAILY [facility] Stop: 01/27/25 08:59 Last Admin: 01/03/25 09:05 Dose: 10 mg Metoprolol Tartrate (Metoprolol Tartrate 1 Mg/Ml Vial) 5 mg IV Q4H PRN PRN Reason: sustained HR > 110bpm Stop: 01/26/25 03:03 Last Admin: 01/01/25 07:35 Dose: 5 mg Miscellaneous (Remove Nicoderm Patch) 1 each N/A DAILY@0859 [facility] Stop: 01/26/25 08:58 Last Admin: 01/03/25 07:47 Dose: Not Given Nicotine (Nicotine 7 Mg/24 Hr Tdsy) 1 patch TD QAM [facility] Stop: 01/26/25 08:59 Last Admin: 01/03/25 07:47 Dose: Not Given Ondansetron HCl (Ondansetron Inj 2 Mg/Ml 2 Ml Vial) 4 mg IV Q6H PRN PRN Reason: Nausea And Vomiting Stop: 01/26/25 03:03 Quetiapine Fumarate (Quetiapine Fumarate 100 Mg Tablet) 100 mg PO HS [facility] Stop: 01/26/25 20:59 Last Admin: 01/02/25 21:45 Dose: 100 mg Sacubitril/Valsartan (Valsartan/Sacubitril 26/24mg Tab) 1 tab PO BID [facility] Stop: 01/26/25 20:59 Last Admin: 01/03/25 09:05 Dose: 1 tab Sodium Chloride (Sodium Chloride 0.65% Na Soln 45 Ml ([place])) 2 sprays NA QID PRN PRN Reason: congestion Stop: 01/26/25 03:03 PG Care Time/CCT Total # of Minutes Spent Total Time Spent with Patient: Total time spent is greater than 50% in coordination of care (as documented) at patient's floor/unit and/or counseling patient: Coding Level of Care Code 54529 SUB INP/OBS CARE MIN Diagnoses Heart failure with reduced ejection fraction (HFrEF) I50.20 Cardiomyopathy I42.9 Paroxysmal atrial flutter I48.92 Mitral regurgitation I34.0 Hypertension I10 CAD (coronary artery disease) I25.10
[2025-01-03 15:03] LABS: Anion Gap 3.0 (3-11); Blood Urea Nitrogen 22.0 mg/dl (6-23); Calcium 8.6 mg/dl (8.6-10.3); Carbon Dioxide 28.0 mmol/L (21-32); Chloride 104.0 mmol/L (98-107); Creatinine Clr Calc Pharmacy 62.3 ml/min; Glucose 102.0 mg/dl (70-99(Fasting)); Potassium 4.5 mmol/L (3.5-5.1); Sodium 135.0 mmol/L (136-145)
[2025-01-03] MEDS: ATORVASTATIN 40 MG TAB PO SCH (20:07)
[2025-01-03 23:00] VITALS: O2SAT 94
[2025-01-04 07:10] LABS: Creatinine Clr Calc Pharmacy 83.0 ml/min
[2025-01-04 07:13] VITALS: RESP 20; TEMP 98.1
[2025-01-04 09:36] VITALS: BP 128/36; PULSE 66
--- NOTE | 2025-01-04 11:13 | Discharge Summary ---
Date of Service January 04, 2025 Admission HPI Per Admitting Provider Jalen Alvarado is a 64yo male with history of HTN, HLP, GERD, presenting with complaint of abdominal pain. Patient has a ventral hernia and reports ongoing pain in his anterior abdomen - sharp and stabbing with occasional radiation into the back. He reports that the pain is fairly constant, severe at times. He has normal appetite and oral intake. Reports normal bowel movements. No abdominal distention. In the ER, patient found to be in atrial fibrillation with rapid ventricular response. He has no prior history of atrial fibrillation but was told years ago by Dr. Jordan that he has an "extra heartbeat". Has never been on anticoagulation. Denies edema, orthopnea, weight gain Denies nausea, vomiting, diarrhea, constipation, urinary complaints He does have occasional cough productive for white phlegm with occasional pink tinge ER course: Thiamine 200 mg IV Diltiazem 10 mg IV x 2 Normal saline 500 mL IV Magnesium 1 g IV Zofran 4 mg IV Admission Exam (Per Admitting) Constitutional The patient is awake, alert and oriented 3, well developed and well nourished, normocephalic and atraumatic, lying in bed and in no acute distress. HEENT--PERRL, EOMI, mucous membranes and oropharynx mildly dry Neck--supple. No JVD. No bruits. Thyroid normal, trachea midline, no adenopathy. Heart--normal S1 and S2. No murmurs, rubs or gallops. Lungs--clear bilaterally, no respiratory distress, no accessory muscle use. Abdomen--normal bowel sounds and soft. Extremities--no cyanosis or clubbing. No edema. Dermatologic--normal skin turgor, normal color, no abnormal lymph nodes, no rash. Neurologic--cranial nerves II through XII grossly intact. Rheumatologic--normal range of motion. Psychiatric--normal affect. Discharge Data Consultations 12/27/24 00:02 ED Decision to Admit Stat 12/27/24 07:45 Consult Cardiology Routine 12/27/24 10:34 Consult General Surgery Routine Procedures Performed Operation Date: 01/02/25 12:00 Actual Procedures p Cineradiography w/Routine Exam - Antoni Back MD p Cath, Left with Cors and Vent - Antoni Back MD Hospital Course (1) Bilateral pleural effusion: This is a 64-year-old male with history of hypertension, hyperlipidemia presenting with complaint of abdominal pain due to longstanding hernia. Found to be in new onset atrial fibrillation with rapid ventricular response. Concern for possible heart failure given presence of bilateral pleural effusions. 1.Acute HFpEF in setting of Atrial Flutter with RVR 2 D ECHO done, EF 30-35 % with wall motion abnormality Cardiac cath was done which showed clean coronaries Cardiology on consult He appears compensated, will hold Lasix Carvedilol 12.5 mg twice daily, Entresto Monitor I/O, daily weights He will follow cardiology outpatient preferably in the office at [place] with Dr. Babb They will start him on Spironolactone and possible resinstitute his Lasix (2) Atrial flutter with rapid ventricular response: -Paroxysmal -con't eliquis 5mg BID Continue carvedilol 12.5mg BID (3) Hypertension: controlled (4) Diastasis of rectus abdominis: -surgical consult appreciated -no intervention necessary Plan d/c home Coding Level of Care Code 31969 INP/OBS DISCH >30 MIN Diagnoses Bilateral pleural effusion J90 Atrial flutter with rapid ventricular response I48.92 Hypertension I10 Diastasis of rectus abdominis M62.08 Time Spent (min) 35
== END 2025-01-04 09:58 | disposition home or self-care (01) | DRG 286 ==
LOC: ED 20:36 → SUATTDRO 12-27 00:45 → EDINP 12-27 00:45 → 2S 12-27 03:04 → 3E 12-27 22:04 → 2N 12-31 20:04 → 2S 01-02 14:11